=== PATIENT | female | born 1935 | race Caucasian/White ===

== ENCOUNTER 2016-11-24 18:27 | Emergency (ER) | payer MEDICARE ==
[~2016-11-24] VITALS: Ht 165.1 cm; Wt 63.5 kg
[2016-11-24] MEDS ORDERED: METF500T (18:45)
[2016-11-24] MEDS ORDERED: ASPI325T PO (18:45)
[2016-11-24] MEDS ORDERED: HYDR12.55 (18:45)
[2016-11-24] MEDS ORDERED: RAMI10CA (18:45)
[2016-11-24] MEDS ORDERED: CILO100T PO (18:45)
[2016-11-24 19:09] LABS: BASO # 0.1 K/mm3 (0.0-0.2); BASO % 1.1 % (0.0-1.0); EOS # 0.2 K/mm3 (0.0-0.50); EOS % 2.9 % (0.0-3.0); LARGE UNSTAINED CELL # 0.2 K/mm3 (0.0-0.4); LARGE UNSTAINED CELL % 2.6 % (0.0-4.0); LYMPH # 1.8 K/mm3 (1.5-4.5); LYMPH % 29.5 % (24.0-44.0); MEAN CORPUSCULAR HEMOGLOBIN 29.8 pg (27.0-33.0); MEAN CORPUSCULAR HGB CONC 33.4 g/dl (32.0-36.5); MEAN CORPUSCULAR VOLUME 89.4 fl (80.0-96.0); MONO # 0.4 K/mm3 (0.0-0.8); MONO % 6.4 % (0.0-5.0); NEUTROPHILS # 3.3 K/mm3 (1.8-7.7); NEUTROPHILS % 57.5 % (36.0-66.0); PLATELET COUNT, AUTOMATED 231 k/mm3 (150-450); RED CELL DISTRIBUTION WIDTH 13.7 % (11.5-14.5); WHITE BLOOD COUNT 5.8 K/mm3 (4.0-10.0)
[2016-11-24 19:26] LABS: ANION GAP 5 MEQ/L (8-16); BLOOD UREA NITROGEN 18 MG/DL (7-18); CALCIUM LEVEL 8.9 MG/DL (8.8-10.2); CARBON DIOXIDE LEVEL 31 MEQ/L (21-32); CHLORIDE LEVEL 105 MEQ/L (98-107); CREATININE FOR GFR 0.91 MG/DL (0.55-1.02); GLOMERULAR FILTRATION RATE > 60.0 (>32); GLUCOSE, FASTING 116 MG/DL (83-110); POTASSIUM SERUM 4.1 MEQ/L (3.5-5.1); SODIUM LEVEL 141 MEQ/L (136-145)
--- NOTE | 2016-11-24 19:26 | REP ---
Clinical: Chest pain. Comparison: None. Findings: Cardiac silhouette is within normal limits for portable technique. Atherosclerotic changes of the aorta noted. Lung zee demonstrate chronic-appearing changes. No obvious acute consolidation, effusion, or pneumothorax. Skeletal structures intact. Impression: Chronic-appearing changes. No obvious acute cardiopulmonary process. Signed by Roberto Ashford MD 11/24/2016 07:17 P
[2016-11-24] MEDS ORDERED: ASPIRIN 81 MG CHEW TABLET PO ONE (19:30)
[2016-11-24] MEDS ORDERED: ISOVUE-370 76% 100ML VIAL (Q9967) As Ordered ONE (21:05)
--- NOTE | 2016-11-24 22:07 | REP ---
Clinical: Lower extremity swelling with shortness of breath Technique: Hernandez scale and color Doppler evaluation using linear high frequency transducer. Findings: Ultrasound examination of the right and left lower extremity deep venous structures from the common femoral vein to the popliteal vein demonstrates normal compressibility flow and wave patterns in response to respiration and augmentation. There is no evidence for deep venous thrombosis. Impression: No evidence for deep venous thrombosis. Signed by Roberto Ashford MD 11/24/2016 09:59 P
--- NOTE | 2016-11-24 22:11 | ECGEPIP ---
Stationary ECG Study 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
--- NOTE | 2016-11-24 22:27 | REP ---
Clinical: Acute chest pain. Shortness of breath. Technique: Axial contrast enhanced images from the thoracic inlet to the upper abdomen using 100 ml Isovue 370 intravenous contrast material with coronal and sagittal re-formations. Findings: Satisfactory enhancement of the pulmonary vasculature is achieved and no filling defects are identified to suggest pulmonary embolus. Cardiomegaly is appreciated along with atherosclerotic changes to the coronary arteries and thoracic aorta. No aortic dissection. Bilateral lung zee demonstrate chronic-appearing changes with trace basilar atelectasis. No pleural or pericardial effusion. No pneumothorax. No adenopathy. Impression: No evidence for pulmonary embolus. Cardiomegaly and atherosclerotic disease. Chronic interstitial changes with trace basilar atelectasis. Signed by Roberto Ashford MD 11/24/2016 10:19 P
[2016-11-25 02:21] VITALS: BP 158/72
--- NOTE | 2016-11-25 06:16 | ECGEPIP ---
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
[2016-11-26] MEDS ORDERED: ASPI325T28 PO (14:58)
[2016-11-26] MEDS ORDERED: RAMI10CA PO (14:58)
[2016-11-26] MEDS ORDERED: METF500T PO (14:58)
[2016-11-26] MEDS ORDERED: HYDR12CA PO (14:58)
== END 2016-11-25 02:22 | disposition home or self-care (01) ==
LOC: M ED 20:18
DX: R07.9 Chest pain, unspecified (principal); I25.10 Atherosclerotic heart disease of native coronary artery without angina pectoris; I50.20 Unspecified systolic (congestive) heart failure; I25.2 Old myocardial infarction; I10 Essential (primary) hypertension; E78.5 Hyperlipidemia, unspecified; Z95.5 Presence of coronary angioplasty implant and graft; Z88.0 Allergy status to penicillin; Z79.84 Long term (current) use of oral hypoglycemic drugs; Z79.899 Other long term (current) drug therapy; Z79.82 Long term (current) use of aspirin

== ENCOUNTER 2016-11-26 13:10 | Inpatient (IN) | payer MEDICARE ==
[~2016-11-26] VITALS: Ht 162.6 cm; Wt 61.8 kg
[~2016-11-26 13:10] MED LIST: ASPI325T PO; CILO100T PO; HYDR12.55; METF500T; RAMI10CA
[2016-11-26] MEDS ORDERED: NS 500 ML IV ONE (13:30)
--- NOTE | 2016-11-26 13:57 | REP ---
Clinical: Cerebrovascular accident. Findings: Age-related atrophy and microvascular ischemic changes are appreciated. The ventricles and sulci are symmetric. Hernandez-white differentiation is maintained. There is no evidence for acute intracranial hemorrhage, mass/mass effect, pathology or infarction. No extra-axial fluid collection. Calvarium is intact. Paranasal sinuses and mastoid air cells are clear. Impression: Age related atrophy and microvascular ischemic changes. No acute intracranial hemorrhage, infarction, or mass/mass effect. Signed by Roberto Ashford MD 11/26/2016 01:48 P
[2016-11-26 14:05] LABS: BASO # 0.1 K/mm3 (0.0-0.2); BASO % 0.9 % (0.0-1.0); EOS # 0.2 K/mm3 (0.0-0.50); EOS % 2.5 % (0.0-3.0); LARGE UNSTAINED CELL # 0.2 K/mm3 (0.0-0.4); LARGE UNSTAINED CELL % 2.1 % (0.0-4.0); LYMPH # 1.5 K/mm3 (1.5-4.5); LYMPH % 20.7 % (24.0-44.0); MEAN CORPUSCULAR HEMOGLOBIN 29.6 pg (27.0-33.0); MEAN CORPUSCULAR HGB CONC 32.9 g/dl (32.0-36.5); MEAN CORPUSCULAR VOLUME 90.1 fl (80.0-96.0); MONO # 0.4 K/mm3 (0.0-0.8); MONO % 5.4 % (0.0-5.0); NEUTROPHILS # 4.9 K/mm3 (1.8-7.7); NEUTROPHILS % 68.4 % (36.0-66.0); PLATELET COUNT, AUTOMATED 254 k/mm3 (150-450); RED CELL DISTRIBUTION WIDTH 13.5 % (11.5-14.5); WHITE BLOOD COUNT 7.2 K/mm3 (4.0-10.0)
--- NOTE | 2016-11-26 14:11 | REP ---
Clinical: Cerebrovascular accident . Comparison: 11/24/2016 . Findings: The mediastinum and cardiac silhouette are stable and within normal limits for portable technique. The lung zee are clear without acute consolidation, effusion, or pneumothorax. Skeletal structures are intact. Impression: Normal portable chest x-ray Signed by Roberto Ashford MD 11/26/2016 02:03 P
[2016-11-26 14:18] LABS: INR 1.05
[2016-11-26 14:31] LABS: ANION GAP 8 MEQ/L (8-16); BLOOD UREA NITROGEN 19 MG/DL (7-18); CALCIUM LEVEL 8.5 MG/DL (8.8-10.2); CARBON DIOXIDE LEVEL 26 MEQ/L (21-32); CHLORIDE LEVEL 106 MEQ/L (98-107); CREATININE FOR GFR 0.91 MG/DL (0.55-1.02); GLOMERULAR FILTRATION RATE > 60.0 (>32); GLUCOSE, FASTING 150 MG/DL (83-110); POTASSIUM SERUM 4.5 MEQ/L (3.5-5.1); SODIUM LEVEL 140 MEQ/L (136-145)
[2016-11-26] MEDS ORDERED: METF500T PO (14:58)
[2016-11-26] MEDS ORDERED: ASPI325T28 PO (14:58)
[2016-11-26] MEDS ORDERED: RAMI10CA PO (14:58)
[2016-11-26] MEDS ORDERED: HYDR12CA PO (14:58)
[2016-11-26] MEDS ORDERED: GLUCAGON FOR INJ 1 MG VIAL (J1610) SC PRN (16:00)
[2016-11-26] MEDS ORDERED: BISACODYL 5 MG TAB PO PRN (16:00)
[2016-11-26] MEDS ORDERED: ACETAMINOPHEN TAB 650MG DOSE (2X325MG) PO PRN (16:00)
[2016-11-26] MEDS ORDERED: GLUCOSE 4 GM CHEW TABLET PO PRN (16:00)
[2016-11-26] MEDS ORDERED: DEXTROSE 50% 50 ML SYRINGE IV PRN (16:00)
[2016-11-26] MEDS ORDERED: LevoFLOXacin IV 500 MG in APPROPRIATE DILUENT 1 EA IV ONE (16:15)
--- NOTE | 2016-11-26 17:19 | HPE ---
DATE OF ADMISSION: 11/26/2016 PRIMARY CARE PROVIDER: Dr. Toño Ceja. CHIEF COMPLAINT: Slurred speech, facial droop. HISTORY OF PRESENT ILLNESS: Ms. Poole is an 81-year-old female with past medical history significant for hypertension, hyperlipidemia, diabetes and history of myocardial infarction (VT) who presents to the emergency department with slurred speech and facial droop. Granddaughter noticed that last evening when she was talking to her grandmother, her speech was slurred. Another granddaughter apparently noticed that she had facial drooping. Nothing was done about this at that time. Granddaughter called again today, noticed that she still continued to have slurred speech and called emergency medical services (EMS). The patient had apparently also mentioned some weakness on the left side. One of the granddaughters mentioned that she did have an episode of shaking and her eyes rolled back. No incontinence and no tongue biting at that time. They state that since , her balance has been off and she has fallen a couple of times. The patient denies any headache, lightheadedness or dizziness. No blurry or double vision or loss of vision. No chest pain, palpitations or shortness of breath. She did have a little bit of nausea but no emesis, abdominal pain, diarrhea, fevers or chills. No recent travel and no sick contacts. In the emergency department when patient initially came in, she apparently was not as responsive as she is now. Vitals are stable. The patient is awake and alert. Answering questions appropriately. Following commands. Laboratory data did not show any significant abnormality. Urinalysis, however, did show some cloudy urine, 2+ blood, 3+ leukocyte esterase, WBC of 124, and 2+ bacteria. The patient had a head CT performed which did not show any acute abnormality. Chest x-ray was normal. She had an EKG which showed sinus rhythm, left axis deviation , intraventricular conduction delay, left ventricular hypertrophy (LVH), nonspecific T-wave abnormalities. Given her presentation, hospitalist service was called to admit. PAST MEDICAL HISTORY 1. Hypertension. 2. Diabetes. 3. Coronary artery disease with history of VT. 4. Hyperlipidemia. PAST SURGICAL HISTORY 1. Stent maybe 7-8 years ago. 2. Appendectomy. 3. Tonsillectomy. 4. Left knee surgery. HOME MEDICATIONS: - aspirin 325 mg by mouth daily - hydrochlorothiazide 12.5 mg by mouth daily - metformin 500 mg by mouth twice daily - ramipril 10 mg by mouth daily ALLERGIES: PENICILLIN (rash). SOCIAL HISTORY: The patient denies any tobacco use or illicit drugs. Occasional wine. She lives with her . No pets in the home. They travel yearly to [place] in the winter months. No sick contacts. No recent travel. No exposure to ticks. FAMILY HISTORY: Mom had history of lung cancer. Father had heart problems. She has a son with seizure disorder. REVIEW OF SYSTEMS: Constitutional: No fevers, chills, night sweats. No significant weight changes. She does have some weakness. HEENT: No headache, lightheadedness or dizziness. No blurry or double vision or loss of vision. No acute changes to vision. She is hard of hearing. Cardiovascular: No chest pain/pressure, palpitations or shortness of breath. No chronic lower extremity edema. Pulmonary: No shortness of breath or cough. No wheezing. Gastrointestinal: Positive for mild nausea. No emesis, abdominal pain, diarrhea, constipation, hematochezia or melena. Genitourinary: No increased urinary frequency, urgency, dysuria or hematuria. Endocrine: History of diabetes. No thyroid disorder. Integument: No unusual rashes or skin lesions. Musculoskeletal: No unusual muscle or joint pains. Neurologic: No paresthesias. No previous history of CVA. PHYSICAL EXAMINATION: VITAL SIGNS: Temperature 97.9, pulse 72, respiratory rate 18, blood pressure 123/58, pulse oximetry 98% on room air. GENERAL: The patient is awake and alert in no acute distress. HEENT: Atraumatic. Extraocular muscles are intact. Pupils are equally round and reactive to light. No scleral icterus. No nystagmus. Moist mucosa. Tongue is deviated to the left. NECK: Supple. No cervical lymphadenopathy or thyromegaly. HEART: Normal S1, S2, regular rate and rhythm. Did not appreciate a murmur. LUNGS: Clear to auscultation bilaterally. No rales, rhonchi or wheezing. ABDOMEN: Soft, nontender, nondistended. Positive bowel sounds. No rebound, guarding or rigidity. EXTREMITIES: No cyanosis or edema. Positive pedal pulses bilaterally. SKIN: Warm and dry. No rashes noted. NEUROLOGIC: Motor strength in upper and lower extremities is 5/5 bilaterally and symmetric. Sensation is intact. Duipxq-oc-gthx test was abnormal on the left. The patient was not able to perform lszu-gk-yrak testing. Negative Babinski. Positive for left facial droop. Speech has improved but still a little slurred. LABORATORY DATA: WBC 7.2, hemoglobin 13.8, hematocrit 42.0, platelet count 254. Sodium 140, potassium 4.5, chloride 106, carbon dioxide 26, anion gap 8, BUN 19, creatinine 0.91, GFR greater than 60, fasting glucose 150, hemoglobin A1c 6.4, calcium 8.5, total creatine kinase 59, CK-MB 1.0, troponin less than 0.02. PT 13.8, INR 1.05, APTT 27.86. Urinalysis showed cloudy appearance, 1+ protein, trace ketones, 2+ blood, 3+ leukocyte esterase, 124 WBC, 67 RBC, 2+ bacteria. IMAGING: Head CT reveals age-related atrophy and microvascular ischemic changes. No acute hemorrhage, infarct or mass effect. Chest x-ray revealed no acute cardiopulmonary process. ASSESSMENT AND PLAN: 1. Slurred speech and facial droop likely secondary to cerebrovascular accident (CVA). Head CT was negative. Will obtain MRI, MRA and carotid imaging. Will also obtain an echocardiogram. The patient will be placed on aspiration precautions, fall risk precautions, neurologic checks every four hours. Given the noted history of shaking and eyes rolling back, will obtain an electroencephalogram (EEG). Seizure precautions in place. The patient denies any dysphasia, but will place her on a puree thickened diet until speech evaluation could be done. Physical therapy (PT) and occupational therapy (OT). Neurology was called. Recommendations from Dr. Newell are to switch her from aspirin to Plavix. Given her negative head CT, will give her a dose of Plavix right now. Will also initiate statin therapy. If the patient's MRI is negative , she can be switched back to her aspirin. Neurology will see the patient in consult. 2. Abnormal urinalysis suggestive of urinary tract infection. Will obtain urine culture. Will place the patient on Levaquin. She does have previous history of Escherichia (E.) coli in the urine.. Vitals are stable. She is afebrile. No white count. 3. Hypertension. The patient's blood pressure is currently well controlled. We will hold her hydrochlorothiazide and ramipril. She did not come in hypertensive, but permissive hypertension would be appropriate in this case. Continue to monitor her blood pressures. 4. Diabetes. Will hold metformin. Insulin sliding scale with hypoglycemic protocol. 5. History of myocardial infarction status post stent. Aspirin is being changed to Plavix. Initiated on statin therapy. We will cycle cardiac markers. The patient is asymptomatic at this time. 6. Deep venous thrombosis (DVT) prophylaxis with subcutaneous heparin twice a day. 7. Code status. The patient her are unclear of their code status. They report that there are some forms filled out at home and they will have to bring those in. The patient will be admitted to progressive care unit (PCU). Expected to stay at least two midnights. Dr. Estrella to take over her care in the morning. My preceptor for this patient encounter was Dr. Catherine Bloom. The preceptor was physically present in the building during the encounter and was fully available as needed. All aspects of the patient interview, examination, medical decision making process, and medical care plan development were reviewed and approved by the preceptor. The preceptor is aware and concurs with the plan as stated in the body of this note and will attest to such by his/her co-signature. I have both independently examined this patient as well as reviewed the note. I have discussed in detail with the resident the findings and plan of treatment as documented in the residents note. I will continue to follow the patient and offer further guidance to the patients care as necessary during this hospital stay. Catherine QUINTANILLA
[2016-11-26] MEDS: HumaLOG INSULIN (NovoLOG) PER UNIT SC SCH ×2 (17:30→22:17)
--- NOTE | 2016-11-26 18:40 | REPUSA ---
Clinical history: CVA. Comparison: none. Technique: [id number] MRA images of the brain were obtained without administration of contrast. 3 -D MIP images were also obtained. Findings: The vascular structures extending from the distal carotid and vertebrobasilar arterial syst ems, through the modoc of Yu, demonstrate normal caliber and contour. The basilar artery is ecta tic. There is no evidence of aneurysm, stenosis, or thrombosis. Impression: Unremarkable MRA examination of the brain.
[2016-11-26 18:45] VITALS: BP 134/72
--- NOTE | 2016-11-26 18:50 | REPUSA ---
Clinical history: CVA. Comparison: none. Technique: Multiecho multiplanar MRI images of the brain were obtained without administration of cont rast. Diffusion weighted images with ADC mapping was also obtained. The ventricles and sulci are symmetric but prominent bilaterally. The brain parenchyma demonstrates d iffuse T2 hyperintensity throughout the subcortical white matter. There is a focal area restricted di ffusion in the right basal ganglia. There is no midline shift, mass effect, or extra-axial fluid momo ection. The midline intracranial structures do not demonstrate any gross abnormalities. The cervical cranial junction is intact. The orbits are unremarkable. The visualized paranasal sinuses and mastoid air cells are clear. The osseous structures and superficial soft tissues are unremarkable. The vascu lar structures demonstrate appropriate flow voids. Impression: 1. Acute infarct in the right basal ganglia. No surrounding mass effect or edema. 2. Findings consistent with severe chronic small vessel ischemic disease and age-related atrophy. The floor nurse was notified of these findings at 6:39 PM on 11/26/2016.
[2016-11-26 19:34] VITALS: BP 119/56
[2016-11-26 19:37] VITALS: BP 115/60
[2016-11-26 19:44] VITALS: BP 124/58
[2016-11-26] MEDS: CLOPIDOGREL 75 MG TAB PO SCH (19:56)
[2016-11-26 20:39] LABS: CHOLESTEROL LEVEL 416 MG/DL (<200); TRIGLYCERIDES LEVEL 427 MG/DL (<150)
[2016-11-26] MEDS: HEPARIN SOD (PORCINE) 5000 UNITS/ML VIAL SC SCH (22:15)
[2016-11-26] MEDS: ATORVASTATIN 20 MG TAB PO SCH (22:16)
[2016-11-27 00:58] VITALS: BP 141/65
[2016-11-27 03:59] VITALS: BP 135/62
[2016-11-27 04:03] LABS: MEAN CORPUSCULAR HEMOGLOBIN 29.5 pg (27.0-33.0); MEAN CORPUSCULAR VOLUME 89.5 fl (80.0-96.0); RED CELL DISTRIBUTION WIDTH 13.6 % (11.5-14.5); WHITE BLOOD COUNT 5.8 K/mm3 (4.0-10.0)
[2016-11-27 04:39] LABS: ANION GAP 7 MEQ/L (8-16); BLOOD UREA NITROGEN 18 MG/DL (7-18); CALCIUM LEVEL 8.7 MG/DL (8.8-10.2); CARBON DIOXIDE LEVEL 29 MEQ/L (21-32); CHLORIDE LEVEL 105 MEQ/L (98-107); CREATININE FOR GFR 0.94 MG/DL (0.55-1.02); GLOMERULAR FILTRATION RATE > 60.0 (>32); GLUCOSE, FASTING 105 MG/DL (83-110); SODIUM LEVEL 141 MEQ/L (136-145)
[2016-11-27] MEDS: HEPARIN SOD (PORCINE) 5000 UNITS/ML VIAL SC SCH ×2 (07:22→17:07)
[2016-11-27 08:00] VITALS: BP 131/70
[2016-11-27] MEDS: CLOPIDOGREL 75 MG TAB PO SCH (09:03)
[2016-11-27] MEDS: LACTOBACILLUS ACIDOPHILUS CAP (BACID) PO SCH ×2 (09:03→21:45)
[2016-11-27] MEDS: HumaLOG INSULIN (NovoLOG) PER UNIT SC SCH ×4 (09:05→20:53)
--- NOTE | 2016-11-27 09:19 | ECGEPIP ---
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
[2016-11-27 12:00] VITALS: BP 101/69
--- NOTE | 2016-11-27 13:28 | IPNPDOC ---
Text Note Date of Service The patient was seen on 11/27/16. NOTE Subjective: Patient is an 81 year old female with a PMHx of HTN, DM2, CAD (Hx of NM), DLP who presented to the ER with complaints of slurred speech and left sided facial droop. When patient's grand-daughter was speaking with her, she had noticed that she had a shaking episode and feel back unresponsive. Patient has also noted multiple falls in the last 1 week, with instability with walking. Patient was admitted to telemetry for TIA / CVA. Patient was seen and examined at the bedside. She notes improvement in her speech and swallowing ability. She denies any seizure like activity since admission. Objective: Vitals (See below) General: Lying in bed, no acute distress, comfortable, AAOx3 HEENT: NC, AT CVS: RRR, +S1S2 Lungs: Fair air entry b/l, -w/r/r Abdomen: Soft, ND, NT, +BSx4 Extremities: +PPx4, - Edema, - Calf tenderness Neuro: 11/04 muscle stregth in upper and lower extremities bilaterally, No appreciable slurred speech, Mild left facial droop noted, Assessment and plan: 1. Left sided facial droop and slurred speech - likely 2/2 acute CVA - Presented with difficulty with ambulation, slurred speech and facial droop on left - Physical with left sided facial droop - Lipid panel noted - CT head 11/26: no acute intracranial hemorrhage / infarct / mass + mass effect - MRA Head 11/26: unremarkable - MRI Brain 11/26: acute infarct in R basal ganglia, no mass effect / edema - ECHO pending, MRA Neck pending - EEG pending - ASA changed to Plavix, c/w Atorvastatin - c/w Telemetry for 72 hours total - Neurology on consult - appreciate their input 2. Abnormal urinalysis - possibly 2/2 Urinary tract infection - No leukocytosis, remains afebrile - Urine culture pending - c/w Levofloxacin (s/p 500 mg, c/w 250mg PO Q24H) 3. HTN - Allow permissive hypertension between SBP 140-180s - Will hold HCTZ and Ramipril 4. NIDDM2 - c/w ISS for now 5.Hx of NM / CAD - ASA changed to Plavix - c/w Atorvastatin 6. DVT prophylaxis - c/w Heparin VS,Fishbone, I+O VS, Fishbone, I+O Laboratory Tests 11/26/16 13:43 Red Blood Count 4.66, Mean Corpuscular Volume 90.1, Mean Corpuscular Hemoglobin 29.6, Mean Corpuscular Hemoglobin Concent 32.9, Red Cell Distribution Width 13.5 , Neutrophils (%) (Auto) 68.4 H, Lymphocytes (%) (Auto) 20.7 L, Monocytes (%) ( Auto) 5.4 H, Eosinophils (%) (Auto) 2.5, Basophils (%) (Auto) 0.9, Neutrophils # (Auto) 4.9, Lymphocytes # (Auto) 1.5, Monocytes # (Auto) 0.4, Eosinophils # ( Auto) 0.2, Basophils # (Auto) 0.1, Calcium Level 8.5 L, Total Creatine Kinase 59 11/27/16 03:47 Red Blood Count 4.21, Mean Corpuscular Volume 89.5, Mean Corpuscular Hemoglobin 29.5, Mean Corpuscular Hemoglobin Concent 33.0, Red Cell Distribution Width 13.6 , Calcium Level 8.7 L, Total Creatine Kinase 50 Vital Signs Date Time Temp Pulse Resp B/P (MAP) Pulse Ox O2 Delivery O2 Flow Rate FiO2 11/27/16 12:00 98.2 76 18 101/69 (80) 97 Room Air 11/26/16 17:57 2.0 I&O- Last 24 Hours up to 6 AM 11/27/16 06:00 Intake Total 840 ml Output Total 400 ml Balance 440 ml NIGEL GAR MD November 27, 2016 13:28
[2016-11-27 16:00] VITALS: BP 159/74
[2016-11-27] MEDS: LevoFLOXacin IV 250 MG in APPROPRIATE DILUENT 1 EA IV SCH (17:07)
[2016-11-27 19:35] VITALS: BP 130/67
[2016-11-27] MEDS: ATORVASTATIN 20 MG TAB PO SCH (21:45)
[2016-11-28] VITALS (8 sets, daily range): BP systolic 118–172; BP diastolic 52–100
[2016-11-28 05:19] LABS: MEAN CORPUSCULAR HEMOGLOBIN 29.6 pg (27.0-33.0); MEAN CORPUSCULAR VOLUME 89.7 fl (80.0-96.0); RED CELL DISTRIBUTION WIDTH 13.4 % (11.5-14.5); WHITE BLOOD COUNT 4.9 K/mm3 (4.0-10.0)
[2016-11-28 05:38] LABS: ANION GAP 9 MEQ/L (8-16); BLOOD UREA NITROGEN 15 MG/DL (7-18); CALCIUM LEVEL 8.3 MG/DL (8.8-10.2); CARBON DIOXIDE LEVEL 25 MEQ/L (21-32); CHLORIDE LEVEL 109 MEQ/L (98-107); CHOLESTEROL LEVEL 351 MG/DL (<200); CREATININE FOR GFR 0.93 MG/DL (0.55-1.02); GLOMERULAR FILTRATION RATE > 60.0 (>32); GLUCOSE, FASTING 119 MG/DL (83-110); POTASSIUM SERUM 3.9 MEQ/L (3.5-5.1); SODIUM LEVEL 143 MEQ/L (136-145); TRIGLYCERIDES LEVEL 521 MG/DL (<150)
[2016-11-28] MEDS: HEPARIN SOD (PORCINE) 5000 UNITS/ML VIAL SC SCH ×2 (05:40→18:34)
[2016-11-28] MEDS: CLOPIDOGREL 75 MG TAB PO SCH (08:52)
[2016-11-28] MEDS: HumaLOG INSULIN (NovoLOG) PER UNIT SC SCH ×4 (08:52→21:00)
[2016-11-28] MEDS: LACTOBACILLUS ACIDOPHILUS CAP (BACID) PO SCH ×2 (08:52→22:35)
[2016-11-28] MEDS ORDERED: SLF 3 ML SYR IV PRN (09:15)
--- NOTE | 2016-11-28 10:23 | ECHO ---
DATE OF PROCEDURE: 11/27/2016 DATE OF : 1935 AGE: 81 REFERRING PROVIDER: Dr. Bloom. PATIENT LOCATION: Room 3224. REASON FOR ECHOCARDIOGRAM: Cerebrovascular accident (CVA). 2D MEASUREMENTS: IVS: 1.1 cm LV: 3.9 cm LVPW: 1.2 cm LA: 3.1 cm Aorta: 3.2 cm RV: 2.7 cm IVC: 1.7 cm DOPPLER MEASUREMENT: Mitral E: 0.5 Mitral A: 0.8 Ratio 0.6 Maximum tricuspid valve velocity: 2.3 m/s 2D COMMENTS: 1. Normal left ventricular size, wall thickness but left ventricular systolic function appeared to be mildly depressed. The alex-septum appeared to be mildly hypokinetic in limited views. The estimated global left ventricular systolic ejection fraction is 45%. 2. Normal left atrium. Normal right atrium and right ventricle. 3. The atrial septum appeared to be normal without evidence of defect or shunt. 4. Normal aortic root. 5. No pericardial effusion seen. 6. Moderately calcified aortic valve with normal leaflet excursion. Mildly calcified mitral annulus with normal anterior mitral valve leaflet motion. Normal tricuspid valve. The pulmonic valve and proximal pulmonary artery branches were not well visualized. 7. The inferior vena cava/IVC was normal in size, central venous pressure is probably normal. 8. Mild atheromatous plaques noted in the aorta. DOPPLER: Only mild tricuspid regurgitation detected. The calculated pulmonary artery systolic pressure varies between 30 to 40 mmHg. Abnormal relaxation pattern was noted across the mitral valve leaflets as well as the mitral valve annulus consistent with grade I left ventricular diastolic dysfunction. IMPRESSION: 1. Not mentioned above, the study was technically limited due to poor acoustic window. 2. Probably mildly depressed global left ventricular systolic function with regional wall motion abnormalities. There was grade I left ventricular diastolic dysfunction. 3. Aortic valve sclerosis without stenosis or aortic regurgitation. 4. Isolated mitral annulus calcification, mild. No significant mitral regurgitation. 5. Mild tricuspid regurgitation with mild pulmonary hypertension. MTDD
--- NOTE | 2016-11-28 11:26 | IPNPDOC ---
Text Note Date of Service The patient was seen on 11/28/16. NOTE Subjective: Patient is an 81 year old female with a PMHx of HTN, DM2, CAD (Hx of [place]), DLP who presented to the ER with complaints of slurred speech and left sided facial droop. When patient's grand-daughter was speaking with her, she had noticed that she had a shaking episode and feel back unresponsive. Patient has also noted multiple falls in the last 1 week, with instability with walking. Patient was admitted to telemetry for TIA / CVA. Patient was seen and examined at the bedside. Patient has been tolerating an adjusted diet. Denies any muscle weakness. Will continue to work with physical therapy. Objective: Vitals (See below) General: Lying in bed, no acute distress, comfortable, AAOx3 HEENT: NC, AT CVS: RRR, +S1S2 Lungs: Fair air entry b/l, -w/r/r Abdomen: Soft, ND, NT, +BSx4 Extremities: +PPx4, - Edema, - Calf tenderness Neuro: 11/04 muscle strength in upper and lower extremities bilaterally, No appreciable slurred speech, Mild left facial droop noted, Assessment and plan: 1. Left sided facial droop and slurred speech - likely 2/2 acute CVA - Presented with difficulty with ambulation, slurred speech and facial droop on left - Physical with left sided facial droop - Lipid panel noted - CT head 11/26: no acute intracranial hemorrhage / infarct / mass + mass effect - MRA Head 11/26: unremarkable - MRI Brain 11/26: acute infarct in R basal ganglia, no mass effect / edema - ECHO pending, MRA Neck pending (Will be done on 11/29/16) - EEG pending - ASA changed to Plavix, c/w Atorvastatin - c/w Telemetry for 72 hours total - Neurology on consult - appreciate their input - Physical therapy has evaluated; will continue sessions - not cleared at this time 2. Abnormal urinalysis - possibly 2/2 Urinary tract infection - No leukocytosis, remains afebrile - Urine culture still remain pending - c/w Levofloxacin (s/p 500 mg, c/w 250mg PO Q24H) 3. HTN - Allow permissive hypertension between SBP 140-180s - Will continue to hold HCTZ and Ramipril 4. NIDDM2 - c/w ISS for now 5.Hx of [place] / CAD - ASA changed to Plavix - c/w Atorvastatin 6. DVT prophylaxis - c/w Heparin Disposition: - Continue PT - Complete 72 hours of telemetry monitoring - Complete Imaging of carotids - Await results of ECHO VS,Fishbone, I+O VS, Fishbone, I+O Laboratory Tests 11/28/16 04:50 Red Blood Count 4.34, Mean Corpuscular Volume 89.7, Mean Corpuscular Hemoglobin 29.6, Mean Corpuscular Hemoglobin Concent 33.0, Red Cell Distribution Width 13.4 Vital Signs Date Time Temp Pulse Resp B/P (MAP) Pulse Ox O2 Delivery O2 Flow Rate FiO2 11/28/16 08:00 98.0 70 18 137/52 (80) 96 Room Air 11/26/16 17:57 2.0 I&O- Last 24 Hours up to 6 AM 11/28/16 05:59 Intake Total 1350 ml Output Total 950 ml Balance 400 ml NIGEL GAR MD November 28, 2016 11:26
[2016-11-28] MEDS: NYSTATIN 500,000 U/5 ML SUSP UDC PO SCH ×3 (13:41→22:55)
[2016-11-28] MEDS: SLF 3 ML SYR IV SCH ×2 (13:42→22:36)
[2016-11-28] MEDS: LevoFLOXacin IV 250 MG in APPROPRIATE DILUENT 1 EA IV SCH (16:23)
--- NOTE | 2016-11-28 21:03 | CR ---
DATE OF CONSULTATION: 11/28/2016 REFERRING PROVIDER: Dr. Catherine Bloom REASON FOR CONSULTATION: Acute stroke. HISTORY OF PRESENT ILLNESS: Lona Poole is an 81-year-old female who presented to [facility] 2 days after developing symptoms of slurred speech and two falls within the past week. The patient had a left facial droop on evaluation. MRI did show a right basal ganglia and vaughn radiata acute infarction. The patient was taking aspirin 325 mg daily at home. This was switched to Plavix 75 mg. She is on Lipitor 40 mg daily. Her hemoglobin A1c was found to be 6.4, TSH 2.51 and cholesterol was 416. The patient's HDL was 45. The patient, at the present time, denies having weakness of the left arm and leg though does have obvious left facial droop in an upper motor neuron distribution. The patient has been able to eat well without any difficulty. She is not having any dysphagia. She has mild dysarthria. She denies any vertigo, dizziness, blurred vision, chest pain or shortness of breath. REVIEW OF SYSTEMS: 14-point review of systems was obtained and is negative except as per history of present illness. PAST MEDICAL HISTORY: Hypertension, diabetes, coronary artery disease with history of myocardial infarction and stent placement, hyperlipidemia. PAST SURGICAL HISTORY: Stent 7 to 8 years ago, appendectomy, tonsillectomy, left knee surgery. HOME MEDICATIONS: - aspirin 225 mg daily - hydrochlorothiazide 12.5 mg by mouth daily - metformin 500 mg by mouth twice a day - ramipril 10 mg by mouth daily ALLERGIES: PENICILLIN. SOCIAL HISTORY: The patient denies use of any tobacco or illicit drugs and occasionally drinks wine. FAMILY HISTORY: Son with seizures. PHYSICAL EXAMINATION: Blood pressure is 131/70, pulse rate 72, respiratory rate is 18, temperature is 98.1 degrees Fahrenheit, 95% oxygenation on room air. Pupils are 3 mm round, reactive to light. Extraocular movements are intact in all directions. Sensation V1, V2-V3 is intact. There is a left upper motor neuron weakness of the lower face. Hearing subjectively equal to finger rub. No weakness of sternocleidomastoids bilaterally. Tongue is midline. There is no pronator drift. Strength is 5/5, including bilateral hand business services vice president, biceps, triceps, deltoid. Bilateral iliopsoas are grade 4/5. Quadriceps are 5/5. Tibialis anterior 5/5. Deep tendon reflexes are decreased throughout. Romberg testing is deferred. Sensory is intact to light touch in all four extremities. Coordination: Normal [id number] without any signs of ataxia, dysmetria. ASSESSMENT: 1. Acute ischemic stroke of the right basal ganglia resulting and lower left upper motor neuron weakness of the face with dysarthria. PLAN 1. Continue Plavix 75 mg daily. Continue Lipitor 40 mg daily. Repeat fasting lipid profile the following morning, as lipid profile checked was abnormal with triglycerides 427, cholesterol 416 when the patient was not fasting. 2. Continue telemetry monitoring. 3. Continue physical therapy (PT) and occupational therapy (OT). 4. The patient can followup in the [facility] Neurology office upon discharge.
[2016-11-28] MEDS: ATORVASTATIN 20 MG TAB PO SCH (22:35)
[2016-11-29 04:58] VITALS: BP 132/82
[2016-11-29 05:14] LABS: MEAN CORPUSCULAR HEMOGLOBIN 29.6 pg (27.0-33.0); MEAN CORPUSCULAR HGB CONC 33.1 g/dl (32.0-36.5); MEAN CORPUSCULAR VOLUME 89.4 fl (80.0-96.0); RED CELL DISTRIBUTION WIDTH 13.7 % (11.5-14.5); WHITE BLOOD COUNT 5.1 K/mm3 (4.0-10.0)
[2016-11-29 05:29] LABS: ANION GAP 8 MEQ/L (8-16); BLOOD UREA NITROGEN 18 MG/DL (7-18); CALCIUM LEVEL 8.7 MG/DL (8.8-10.2); CARBON DIOXIDE LEVEL 26 MEQ/L (21-32); CHLORIDE LEVEL 109 MEQ/L (98-107); CREATININE FOR GFR 0.93 MG/DL (0.55-1.02); GLOMERULAR FILTRATION RATE > 60.0 (>32); GLUCOSE, FASTING 119 MG/DL (83-110); POTASSIUM SERUM 4.1 MEQ/L (3.5-5.1); SODIUM LEVEL 143 MEQ/L (136-145)
[2016-11-29] MEDS: SLF 3 ML SYR IV SCH ×3 (06:00→21:20)
[2016-11-29] MEDS: HEPARIN SOD (PORCINE) 5000 UNITS/ML VIAL SC SCH ×2 (07:31→17:17)
[2016-11-29] MEDS: NYSTATIN 500,000 U/5 ML SUSP UDC PO SCH ×3 (07:31→17:17)
[2016-11-29 08:00] VITALS: BP_SYST 142; BP_SYST 143; BP_SYST 156; BP_DIAS 82; BP_DIAS 84; BP_DIAS 93
[2016-11-29] MEDS: CLOPIDOGREL 75 MG TAB PO SCH (08:25)
[2016-11-29] MEDS: LACTOBACILLUS ACIDOPHILUS CAP (BACID) PO SCH ×2 (08:25→21:20)
[2016-11-29] MEDS: HumaLOG INSULIN (NovoLOG) PER UNIT SC SCH ×4 (08:25→21:00)
[2016-11-29 12:00] VITALS: BP 146/88
[2016-11-29 16:00] VITALS: BP_SYST 129; BP_SYST 131; BP_SYST 132; BP_DIAS 78; BP_DIAS 80; BP_DIAS 84
[2016-11-29] MEDS ORDERED: LevoFLOXacin 250 MG TABLET PO SCH (16:00)
--- NOTE | 2016-11-29 18:03 | IPNPDOC ---
Text Note Date of Service The patient was seen on 11/29/16. NOTE Subjective: Patient seen and examined sitting up in chair. States she is doing better, but still feeling weak on the left side, mainly in the lower extremity. States she has improved with physical therapy. Denies headache, dizziness, blurred vision, fevers, chills, chest pain, palpitations, SOB, nausea, vomiting, abdominal pain, diarrhea. Admits to constipation and that she has not had a BM for a few days now. However, she feels that she may have to go today as she was "having some action in her stomach." Admits to some left-sided weakness. Denies slurred speech. Denies bowel/bladder incontinence. Denies urinary complaints: dysuria, hematuria. Denies hematochezia. Is eating and drinking well. Objective: Vitals: T:98.2 BP:132/82 RR:18 P:78 O2 Saturation: 96% room air I/O: 1780/1350 mL yesterday, with +430 mL balance today Voids: 1 yesterday Wt: 61.8 kg from 61 kg yesterday BMs: none reported General: Awake, alert, oriented 3. Pleasant and cooperative thin elderly female sitting upright comfortably in chair in no acute distress. HEENT: Head: normocephalic, atraumatic. L-sided facial droop with asymmetry and L lip lower than R lip. Eyes: PERRL, sclera are nonicteric. Nose: No external lesions Neck: Supple. Respiratory: Clear to auscultation bilaterally. Chest: Symmetrical chest rise bilaterally. Cardiovascular: regular rate and rhythm, with no murmurs, rubs or gallops. Abdomen: soft, nontender, nondistended, no hepatosplenomegaly appreciated. Bowel sounds present. Extremities: no swelling in either lower extremity bilaterally Neurological: No focal neurologic deficits appreciated bilaterally. CN 2-12 intact bilaterally. Sensation intact. Musculoskeletal: 4-5/5 muscle strength in L upper and L lower extremity. 5/5 muscle strength RUE and RLE. Slightly decreased ROM with flexion/extension of L upper and lower extremity compared with R. Integumentary: skin free from rashes, lesions, abrasions Vascular: +2 radial pulses appreciated bilaterally. Laboratory data: Please see below. Unremarkable. Microbiology: Urine Cx from 11/26 showed >100,000 E.coli Imagin/27: CT Head without Contrast: (-) CXR: normal Brain MRA Head: Unremarkable MRA Brain MRI: Acute infarction in the R Basal Ganglia. No surrounding mass effect or edema. Findings consistent with severe chronic small vessel ischemic disease and age-related atrophy. Echocardiogram 11/27: EF: 45% Mildly depressed global L ventricular systolic function with regional wall motion abnormalities. Grade I L ventricular diastolic dysfunction. Aortic valve sclerosis without stenosis or aortic regurgitation. Mild tricuspid regurgitation with mild pulmonary HTN. Assessment: 81 yo F is presenting for CVA/acute ischemic stroke of the R basal ganglia with L upper motor neuron weakness. Plan: -L-sided CVA/acute ischemic stroke in R basal ganglia: patient reports improvement in ROM, in ambulation, and denies slurred speech. She still has L sided facial droop. Neurology consult appreciated. EEG was normal. Monitor on telemetry and complete 72 hours of monitoring. Continue plavix and atorvastatin. Continue PT/OT and await clearance. Get PM&R on board. MRA of Head /Brain was unremarkable. Awaiting results of carotid imaging. -Echo findings 11/27: EF: 45% (suggesting systolic heart failure), Mildly depressed global L ventricular systolic function with regional wall motion abnormalities. Grade I L ventricular diastolic dysfunction. Aortic valve sclerosis without stenosis or aortic regurgitation. Mild tricuspid regurgitation with mild pulmonary HTN. -Constipation: monitor for BM. Add laxatives and bowel regimen if necessary. -E.coli UTI: WBC WNL today at 5.1. Treated with levaquin 250 mg PO q24h. Continue bacid for prophylaxis of C. diff. -HTN: Hold HCTZ and ramipril for now to allow permissive HTN. Keep systolic BP readings between 140s to 180s. -NIDDM Type 2: ISS at and . -Coronary Artery Disease/Hx of AR: Continue plavix and atorvastatin. -Diet: mechanical soft. Tolerating. DVT ppx: heparin My preceptor for this patient encounter was Dr. Darren Rowe, and was physically present in the building during the encounter and was fully available. As needed, all aspects of the patient interview, examination, medical decision making process, and medical care plan development were reviewed and approved by the preceptor. Preceptor is aware and concurs with the plan as stated in the body of this note and will attest to such by his/her cosignature. Attending Note I, Dr. Darren Rowe, have independently interviewed and examined this patient at the bedside with my Resident Physician, Dr. Castro, and have discussed and agree with the management for this patient's acute issues VS,Fishbone, I+O VS, Fishbone, I+O Laboratory Tests 11/29/16 05:01 Red Blood Count 4.29, Mean Corpuscular Volume 89.4, Mean Corpuscular Hemoglobin 29.6, Mean Corpuscular Hemoglobin Concent 33.1, Red Cell Distribution Width 13.7 , Calcium Level 8.7 L Vital Signs Date Time Temp Pulse Resp B/P (MAP) Pulse Ox O2 Delivery O2 Flow Rate FiO2 11/29/16 16:00 67 132/78 (96) 67 131/78 (95) 70 129/80 (96) 11/29/16 16:00 97.6 18 97 Room Air 11/26/16 17:57 2.0 I&O- Last 24 Hours up to 6 AM 11/29/16 06:00 Intake Total 1510 ml Output Total 1000 ml Balance 510 ml MILAGROS CASTRO OGME-1 November 29, 2016 18:03 DARREN ROWE MD November 30, 2016 06:27
[2016-11-29 19:00] VITALS: BP 144/73
--- NOTE | 2016-11-29 20:40 | EEG ---
DATE OF PROCEDURE:11/29/2016 REFERRING PHYSICIAN: Iman Rowe MD [id number] DIAGNOSIS: Possible seizure. HISTORY: The patient is a 81-year-old woman was admitted at [facility] due to slurred speech and falls. He was found to have left-sided facial droop. MRI of brain showed right sided acute ischemic stroke. This EEG was done to rule out epileptic potential. She is currently taking Plavix, levofloxacin, insulin, Lipitor etc. TECHNICAL DESCRIPTION: This digital EEG was recorded by 21 scalp, ear and two EKG electrodes and was reviewed in bipolar and referential montages following reformatting in 10-20 international electrode placement system. INTERPRETATION: The patient was noted to be in awake and drowsy states during this EEG. Resting awake background rhythm consisted of well-formed posterior dominant rhythm with anterior/posterior gradient comprising of 9 Hz alpha activity measuring 15 - 40 microvolts in amplitude, which was symmetric and reactive to eye opening. Attenuation of posterior dominant rhythm was seen during transition into drowsiness. Stage I and II sleep were reviewed and were symmetric bilaterally. Hyperventilation could not be performed. Photic stimulation at 3 - 30 Hz elicited symmetric photic driving especially at mid frequencies. EKG revealed normal sinus rhythm. No focal, lateralizing or epileptiform abnormalities were seen. No clinical or electrographic seizures were recorded. CONCLUSION: This EEG in awake, drowsy states, stage I and II sleep is within normal limits.
[2016-11-29] MEDS: ATORVASTATIN 20 MG TAB PO SCH (21:20)
[2016-11-29 22:00] VITALS: BP 139/86
[2016-11-30] MEDS: NYSTATIN 500,000 U/5 ML SUSP UDC PO SCH ×3 (01:07→12:16)
[2016-11-30] MEDS: SLF 3 ML SYR IV SCH (05:21)
[2016-11-30] MEDS: HEPARIN SOD (PORCINE) 5000 UNITS/ML VIAL SC SCH (05:21)
[2016-11-30 05:32] VITALS: BP 148/90
[2016-11-30 06:24] LABS: MEAN CORPUSCULAR HGB CONC 33.1 g/dl (32.0-36.5); MEAN CORPUSCULAR VOLUME 90.4 fl (80.0-96.0); RED CELL DISTRIBUTION WIDTH 13.5 % (11.5-14.5); WHITE BLOOD COUNT 5.3 K/mm3 (4.0-10.0)
[2016-11-30 07:15] VITALS: BP_SYST 144; BP_SYST 147; BP_DIAS 85; BP_DIAS 94
[2016-11-30 08:09] LABS: ANION GAP 8 MEQ/L (8-16); BLOOD UREA NITROGEN 16 MG/DL (7-18); CALCIUM LEVEL 9.2 MG/DL (8.8-10.2); CARBON DIOXIDE LEVEL 28 MEQ/L (21-32); CHLORIDE LEVEL 107 MEQ/L (98-107); CREATININE FOR GFR 0.87 MG/DL (0.55-1.02); GLOMERULAR FILTRATION RATE > 60.0 (>32); GLUCOSE, FASTING 131 MG/DL (83-110); POTASSIUM SERUM 3.9 MEQ/L (3.5-5.1); SODIUM LEVEL 143 MEQ/L (136-145)
[2016-11-30] MEDS: LACTOBACILLUS ACIDOPHILUS CAP (BACID) PO SCH (08:35)
[2016-11-30] MEDS: CLOPIDOGREL 75 MG TAB PO SCH (08:35)
[2016-11-30] MEDS: HumaLOG INSULIN (NovoLOG) PER UNIT SC SCH ×2 (08:36→12:17)
[2016-11-30] MEDS ORDERED: BISAC5TA PO (10:44)
[2016-11-30] MEDS ORDERED: LEVA250T PO (10:44)
[2016-11-30] MEDS ORDERED: NYST50SS PO (10:44)
[2016-11-30] MEDS ORDERED: ATOR1TAB21 PO (10:44)
[2016-11-30] MEDS ORDERED: BACITAB3 PO (10:44)
[2016-11-30] MEDS ORDERED: CLOP75TA2 PO (10:44)
[2016-11-30] MEDS ORDERED: OMEP10CASR PO (10:46)
--- NOTE | 2016-11-30 22:04 | DS.PDOC ---
Discharge Summary General Date of Admission November 26, 2016 at 16:03 Discharge Summary PROCEDURES PERFORMED DURING STAY: [None]. ADMITTING DIAGNOSES: 1. . 2. . 3. . DISCHARGE DIAGNOSES: 1. . 2. . 3. . COMPLICATIONS/CHIEF COMPLAINT: CVA. HISTORY OF PRESENT ILLNESS: . HOSPITAL COURSE: . DISCHARGE MEDICATIONS: Please see below. ALLERGIES: Please see below. PHYSICAL EXAMINATION ON DISCHARGE: VITAL SIGNS: Please see below. GENERAL: HEENT: NECK: CARDIOVASCULAR EXAMINATION: RESPIRATORY EXAMINATION: ABDOMINAL EXAMINATION: EXTREMITIES: SKIN: NEUROLOGICAL EXAMINATION: PSYCHIATRIC EXAMINATION: LABORATORY DATA: Please see below. IMAGING: PROGNOSIS: ACTIVITY: [As tolerated]. DIET: . DISCHARGE PLAN: DISPOSITION: 01 Home, Self-Care. DISCHARGE INSTRUCTIONS: 1. . 2. . 3. . ITEMS TO FOLLOWUP ON ON OUTPATIENT: 1. . 2. . 3. . DISCHARGE CONDITION: [Stable]. TIME SPENT ON DISCHARGE: Greater than minutes. Vital Signs/I&Os Vital Signs Date Time Temp Pulse Resp B/P (MAP) Pulse Ox O2 Delivery O2 Flow Rate FiO2 11/30/16 07:15 78 144/85 (104) 77 147/85 (105) 80 147/94 (111) 11/30/16 06:00 98.1 18 93 Room Air 11/26/16 17:57 2.0 I&O- Last 24 Hours up to 6 AM 11/30/16 05:59 Intake Total 1560 ml Output Total 400 ml Balance 1160 ml Laboratory Data Labs 24H Laboratory Tests 2 11/30/16 07:21: Anion Gap 8, Glomerular Filtration Rate > 60.0, Blood Urea Nitrogen 16, Creatinine 0.87, Sodium Level 143, Potassium Level 3.9, Chloride Level 107, Carbon Dioxide Level 28, Calcium Level 9.2 11/30/16 07:52: Bedside Glucose (Misc Panel) 130H 11/30/16 11:33: Bedside Glucose (Misc Panel) 119H CBC/BMP Laboratory Tests 11/30/16 05:53 Red Blood Count 4.60, Mean Corpuscular Volume 90.4, Mean Corpuscular Hemoglobin 30.0, Mean Corpuscular Hemoglobin Concent 33.1, Red Cell Distribution Width 13.5 11/30/16 07:21 Calcium Level 9.2 FSBS Laboratory Tests Test 11/30/16 07:52 11/30/16 11:33 Range/Units Bedside Glucose (Misc Panel) 130 119 83-110 MG/DL Microbiology Microbiology 11/26/16 Urine Culture - Final, Complete Escherichia Coli Discharge Medications Scheduled Aspirin (Aspirin) 325 Mg Tab, 325 MG PO DAILY, (Reported) Atorvastatin Calcium (Atorvastatin Calcium) 20 Mg Tab, 40 MG PO QHS Please take one tablet daily at bedtime. Clopidogrel Bisulfate (Clopidogrel) 75 Mg Tab, 75 MG PO DAILY Please take 1 tab daily. Hydrochlorothiazide (Hydrochlorothiazide) 12.5 Mg Cap, 12.5 MG PO DAILY, ( Reported) Lactobacillus Acidophilus (Bacid) 1 Tab Tab, 1 TAB PO DAILY Please take 1 tablet daily for 3 days. Levofloxacin Hemihydrate (Levaquin) 250 Mg Tab, 250 MG PO DAILY@1600 Please take 1 tablet daily for 3 days. Metformin Hydrochloride (Metformin HCl) 500 Mg Tab, 500 MG PO BID, (Reported) Nystatin (Nystatin Oral Susp) 5 Ml Susp, 5 ML PO Q6H Omeprazole (PriLOSEC) 10 Mg Capcr, 20 MG PO DAILY Please take one tab daily. Ramipril (Ramipril) 10 Mg Cap, 10 MG PO DAILY, (Reported) Scheduled PRN Bisacodyl (Bisacodyl EC) 5 Mg Tab, 5 MG PO DAILYPRN PRN for CONSTIPATION Please take 1-2 tabs daily as needed for constipation. Allergies Coded Allergies: Penicillins (Verified Allergy, Intermediate, RASH, 04/12/13) MILAGROS CASTRO OGME-1 November 30, 2016 22:04
== END 2016-11-30 14:08 | disposition home or self-care (01) | DRG 65 ==
LOC: EDBD 13:10 → M ED 14:07 → M ED INP 16:03 → M PCU 18:40 → M MSPAV 11-29 18:58
PROVIDERS: ADMIT Hospitalist; ATTEND General Practice
DX: I63.9 Cerebral infarction, unspecified (principal); N39.0 Urinary tract infection, site not specified; I50.22 Chronic systolic (congestive) heart failure; I11.9 Hypertensive heart disease without heart failure; E78.5 Hyperlipidemia, unspecified; E11.9 Type 2 diabetes mellitus without complications; I25.2 Old myocardial infarction; I25.10 Atherosclerotic heart disease of native coronary artery without angina pectoris; Z79.82 Long term (current) use of aspirin; Z79.899 Other long term (current) drug therapy; B96.29 Other Escherichia coli [E. coli] as the cause of diseases classified elsewhere

== ENCOUNTER → 2018-03-09 | Outpatient (REF) | payer MEDICARE ==
[2018-03-09 12:03] LABS: HEMATOCRIT 39.4 % (36.0-47.0); HEMOGLOBIN 12.8 g/dl (12.0-15.5); MEAN CORPUSCULAR HEMOGLOBIN 30.3 pg (27.0-33.0); MEAN CORPUSCULAR HGB CONC 32.5 g/dl (32.0-36.5); MEAN CORPUSCULAR VOLUME 93.4 fl (80.0-96.0); PLATELET COUNT, AUTOMATED 251 10^3/uL (150-450); RED BLOOD COUNT 4.22 10^6/uL (4.00-5.40); WHITE BLOOD COUNT 9.1 10^3/uL (4.0-10.0)
[2018-03-09 12:19] LABS: ALBUMIN 3.5 GM/DL (3.2-5.2); ALBUMIN/GLOBULIN RATIO 0.97 (1.00-1.93); ALKALINE PHOSPHATASE 74 U/L (45-117); ALT/SGPT 19 U/L (12-78); ANION GAP 9 MEQ/L (8-16); AST/SGOT 13 U/L (7-37); BILIRUBIN,TOTAL 0.7 MG/DL (0.2-1.0); BLOOD UREA NITROGEN 26 MG/DL (7-18); CALCIUM LEVEL 9.3 MG/DL (8.8-10.2); CARBON DIOXIDE LEVEL 33 MEQ/L (21-32); CHLORIDE LEVEL 99 MEQ/L (98-107); CHOLESTEROL LEVEL 184 MG/DL (<200); CHOLESTEROL RISK RATIO 4.181 (<5); CREATININE FOR GFR 1.52 MG/DL (0.55-1.30); GLOMERULAR FILTRATION RATE 34.8 (>32); GLUCOSE, FASTING 114 MG/DL (70-100); HDL CHOLESTEROL 44 MG/DL (>40); LDL CHOLESTEROL 82.2 MG/DL (<100); NON-HDL-C 140 MG/DL; POTASSIUM SERUM 3.7 MEQ/L (3.5-5.1); SODIUM LEVEL 141 MEQ/L (136-145); TOTAL PROTEIN 7.1 GM/DL (6.4-8.2); TRIGLYCERIDES LEVEL 289 MG/DL (<150)
== END ==
LOC: M LABDRAW1 11:34
DX: I25.10 Atherosclerotic heart disease of native coronary artery without angina pectoris (principal); E78.00 Pure hypercholesterolemia, unspecified; I25.5 Ischemic cardiomyopathy
CPT/HCPCS: 80053

== ENCOUNTER → 2018-04-09 | Outpatient (REF) | payer MEDICARE ==
[2018-04-09 12:08] LABS: ANION GAP 7 MEQ/L (8-16); BLOOD UREA NITROGEN 20 MG/DL (7-18); CALCIUM LEVEL 8.9 MG/DL (8.8-10.2); CARBON DIOXIDE LEVEL 32 MEQ/L (21-32); CHLORIDE LEVEL 105 MEQ/L (98-107); CREATININE FOR GFR 1.06 MG/DL (0.55-1.30); GLOMERULAR FILTRATION RATE 52.7 (>32); GLUCOSE, FASTING 119 MG/DL (70-100); POTASSIUM SERUM 4.3 MEQ/L (3.5-5.1); SODIUM LEVEL 144 MEQ/L (136-145)
== END ==
LOC: M LABDRAW1 10:48
DX: I25.5 Ischemic cardiomyopathy (principal)
CPT/HCPCS: 80048

== ENCOUNTER → 2018-10-11 | Outpatient (REF) | payer MEDICARE ==
[~2018-10-11] MED LIST changes: +ASPI-1 PO; +ASPI-222 PO; -ASPI325T PO; +ATOR1TAB21 PO; +BACITAB PO; +BISAC5TA PO; +CLOP75TA2 PO; +HYDR12CA PO; +LEVA250T13 PO; -METF500T; +METF500T13; +METF500T13 PO; +NYST50SS PO; +OMEP10CASR PO; -RAMI10CA; +RAMI1CAP26; +RAMI1CAP26 PO
[2018-10-11 17:38] LABS: CALCIUM LEVEL 9.6 MG/DL (8.8-10.2); CREATININE FOR GFR 1.25 MG/DL (0.55-1.30); GLOMERULAR FILTRATION RATE 43.6 (>32); POTASSIUM SERUM 3.9 MEQ/L (3.5-5.1)
[2018-10-11 17:39] LABS: MAGNESIUM LEVEL 2.1 MG/DL (1.8-2.4)
== END ==
LOC: M LABDRAW1 15:59
PROVIDERS: ATTEND Physician Assistant
DX: I25.5 Ischemic cardiomyopathy (principal)

== ENCOUNTER 2019-01-15 09:49 | Emergency (ER) | payer MEDICARE ==
[~2019-01-15] VITALS: Ht 165.1 cm; Wt 57.2 kg
--- NOTE | 2019-01-15 10:39 | REP ---
CT of the brain without IV contrast: Comparison is 11/26/2016. There is no hemorrhage. There is no edema, mass effect or midline shift. The sulci and ventricles are diffusely enlarged compatible with diffuse volume loss. This is unchanged. There is lucency in the subcortical white matter compatible with chronic microvascular ischemia. This is unchanged. The visualized paranasal sinuses and mastoid air cells are clear. Impression: There is no hemorrhage, acute infarct or mass. There are findings compatible with chronic microvascular ischemia and diffuse volume loss. No change from the prior study. Electronically Signed by Ramu Macdonald MD 01/15/2019 10:30 A
[2019-01-15] MEDS ORDERED: ACETAMINOPHEN 325 MG TAB PO ONE (10:45)
[2019-01-15 10:49] LABS: BASO # 0.1 10^3/uL (0.0-0.2); BASO % 0.7 % (0.0-1.0); EOS # 0.2 10^3/uL (0.0-0.50); HEMATOCRIT 41.5 % (36.0-47.0); HEMOGLOBIN 13.6 g/dl (12.0-15.5); LYMPH # 1.4 10^3/uL (1.5-4.5); LYMPH % 18.5 % (24.0-44.0); MEAN CORPUSCULAR HGB CONC 32.8 g/dl (32.0-36.5); MEAN CORPUSCULAR VOLUME 91.6 fl (80.0-96.0); MONO # 0.6 10^3/uL (0.0-0.8); MONO % 7.5 % (0.0-5.0); NEUTROPHILS # 5.3 10^3/uL (1.8-7.7); RED BLOOD COUNT 4.53 10^6/uL (4.00-5.40); WHITE BLOOD COUNT 7.5 10^3/uL (4.0-10.0)
[2019-01-15 11:08] LABS: INR 1.01
[2019-01-15 11:20] LABS: ALBUMIN 3.4 GM/DL (3.2-5.2); ALT/SGPT 16 U/L (12-78); BILIRUBIN,TOTAL 0.6 MG/DL (0.2-1.0); BLOOD UREA NITROGEN 18 MG/DL (7-18); CALCIUM LEVEL 9.5 MG/DL (8.8-10.2); CARBON DIOXIDE LEVEL 30 MEQ/L (21-32); CHLORIDE LEVEL 106 MEQ/L (98-107); CK-MB VALUE MASS < 1.0 NG/ML (<3.6); CPK CREATINE PHOSPHOKINASE 70 U/L (26-192); CREATININE FOR GFR 0.96 MG/DL (0.55-1.30); GLOMERULAR FILTRATION RATE 58.9 (>32); GLUCOSE, FASTING 145 MG/DL (70-100); LIPASE 146 U/L (73-393); MB/CK RELATIVE INDEX 1.43 (< OR =4); POTASSIUM SERUM 4.3 MEQ/L (3.5-5.1); SODIUM LEVEL 142 MEQ/L (136-145); TROPONIN I < 0.02 NG/ML (< 0.10)
[2019-01-15 11:21] LABS: PLATELET COUNT, AUTOMATED 200 10^3/uL (150-450)
[2019-01-15] MEDS ORDERED: ISOVUE-370 76% 100ML VIAL (Q9967) As Ordered ONE (11:42)
[2019-01-15 13:04] VITALS: BP 115/86
--- NOTE | 2019-01-15 13:52 | REP ---
CT ANGIOGRAPHY CAROTID ARTERIES: With IV contrast. HISTORY: Neck pain. Neurologic complaints. Rule out dissection. Comparison is made with today's brain CT. CT CONTRAST DOSE: 75 mL of intravenous Isovue [address] ANGIOGRAPHIC FINDINGS: The thoracic aorta is tortuous and shows atherosclerotic calcification. Great vessel origins appear intact as visualized. There is atherosclerotic calcification at the origin of the innominate artery. The common carotid arteries are intact and symmetric. The vertebral arteries are somewhat tortuous but bilaterally intact. Right is a little smaller than left. There is no evidence of vertebral artery dissection or occlusion. The carotid artery bifurcations show minimal calcification right more so than left. No significant stenosis is seen. The internal carotid arteries are somewhat tortuous but intact. There is no evidence to suggest dissection. No occlusion is seen. There is atherosclerotic calcification in the carotid siphons bilaterally. No evidence of preston aneurysm. 3D surface rendered and curved MPR reformatted images show no additional abnormality. IMPRESSION: The vertebral arteries are tortuous bilaterally but patent. Right vertebral artery is a little smaller than left. The internal carotid artery shows some tortuosity. There is vascular calcification. No evidence of stenosis or dissection. No occlusion seen. Electronically Signed by Du Lane MD 01/15/2019 03:03 P
== END 2019-01-15 14:00 | disposition home or self-care (01) ==
LOC: M ED 09:49
DX: M54.2 Cervicalgia (principal); M79.18 Myalgia, other site; E11.9 Type 2 diabetes mellitus without complications; I11.9 Hypertensive heart disease without heart failure; E78.5 Hyperlipidemia, unspecified; Z86.73 Personal history of transient ischemic attack (TIA), and cerebral infarction without residual deficits; Z95.5 Presence of coronary angioplasty implant and graft; Z88.0 Allergy status to penicillin; Z79.899 Other long term (current) drug therapy; Z79.02 Long term (current) use of antithrombotics/antiplatelets; Z79.82 Long term (current) use of aspirin; Z79.84 Long term (current) use of oral hypoglycemic drugs
CPT/HCPCS: 70450; 70498; 80053; 82550; 82553; 83690; 84484; 85025; 85610; 93041; 94760; 99285; Q9967

== ENCOUNTER 2019-02-26 08:20 | Emergency (ER) | payer MEDICARE ==
[~2019-02-26] VITALS: Ht 165.1 cm; Wt 54.5 kg
[~2019-02-26 08:20] MED LIST changes: -ASPI-222 PO; +ASPI-527 PO
--- NOTE | 2019-02-26 09:06 | REP ---
CT of the head without contrast Indication: Fall injury. Comparison: CT head of 01/15/2019. Technique: Axial CT of the head was performed without contrast. Findings: There is no visible soft tissue swelling or calvarial fracture. There is no evidence of acute intracranial hemorrhage or extra-axial fluid collection. There are scattered and confluent hypodensities within the periventricular and subcortical white matter which are nonspecific but suggestive of microvascular ischemic disease, similar to prior. There is no mass effect or midline shift. The basal cisterns are patent. There is similar prominence of the ventricles secondary to generalized volume loss. Note is made of dense intracranial vascular calcification. The visualized paranasal sinuses and mastoid air cells are clear. Impression: 1. No acute intracranial abnormality. 2. White matter changes, similar to prior. Electronically Signed by Roslyn Petersen MD 02/26/2019 08:57 A
--- NOTE | 2019-02-26 09:17 | REP ---
CT of the cervical spine without contrast Indication: Fall injury. Comparison: None Technique: Axial CT of the cervical spine was performed without contrast. Axial, coronal and sagittal bone reformatted images were provided. Findings: There is diffuse bone demineralization. There is no acute fractures of or subluxation of the cervical spine. There is loss of vertebral body height and C5 and C6 with sclerosis, thought to be chronic. The craniocervical junction is intact. There is extensive multilevel cervical spondylosis including multilevel facet arthropathy and disc space narrowing, endplate irregularity and subchondral cyst formation. There is bony fusion of the left C4-C5 facets and right C3-C4 facets. The CT appearance of the spinal canal is within normal limits. The upper airway is patent. There are mild pleural parenchymal changes within the lung apices. Impression: No acute fracture or subluxation of the cervical spine. Mild loss of vertebral body height at C5 C6 with sclerosis, likely chronic. Extensive cervical spondylosis. Diffuse bone demineralization. Electronically Signed by Roslyn Petersen MD 02/26/2019 09:09 A
[2019-02-26] MEDS ORDERED: CYCLOBENZAPRINE 5MG TABLET PO ONE (09:30)
[2019-02-26] MEDS ORDERED: CYCL5TAB PO (09:30)
[2019-02-26] MEDS ORDERED: ACETAMINOPHEN 325 MG TAB PO ONE (09:45)
[2019-02-26 09:54] VITALS: BP 163/75
--- NOTE | 2019-02-26 10:50 | REP ---
Right shoulder three views : There is no fracture or dislocation. Mineralization and joint spaces are normal. There are no calcifications or foreign bodies. Impression: Negative right shoulder . Electronically Signed by Ramu Macdonald MD 02/26/2019 10:41 A
== END 2019-02-26 09:58 | disposition home or self-care (01) ==
LOC: EDBD 08:20 → M ED 08:20
DX: S16.1XXA Strain of muscle, fascia and tendon at neck level, initial encounter (principal); S40.011A Contusion of right shoulder, initial encounter; W08.XXXA Fall from other furniture, initial encounter; Y92.89 Other specified places as the place of occurrence of the external cause; I11.9 Hypertensive heart disease without heart failure; I25.2 Old myocardial infarction; M19.90 Unspecified osteoarthritis, unspecified site; Z86.73 Personal history of transient ischemic attack (TIA), and cerebral infarction without residual deficits; Z88.0 Allergy status to penicillin; Z79.899 Other long term (current) drug therapy; Z79.02 Long term (current) use of antithrombotics/antiplatelets

== ENCOUNTER → 2019-07-24 | Outpatient (REF) | payer MEDICARE ==
[~2019-07-24] MED LIST changes: +CYCL5TAB PO
[2019-07-24 13:46] LABS: HEMATOCRIT 42.2 % (36.0-47.0); HEMOGLOBIN 13.5 g/dl (12.0-15.5); MEAN CORPUSCULAR HEMOGLOBIN 29.2 pg (27.0-33.0); MEAN CORPUSCULAR VOLUME 91.3 fl (80.0-96.0); PLATELET COUNT, AUTOMATED 260 10^3/uL (150-450); RED BLOOD COUNT 4.62 10^6/uL (4.00-5.40); WHITE BLOOD COUNT 7.1 10^3/uL (4.0-10.0)
[2019-07-24 14:18] LABS: ALBUMIN 3.6 GM/DL (3.2-5.2); BILIRUBIN,TOTAL 0.6 MG/DL (0.2-1.0); CALCIUM LEVEL 9.7 MG/DL (8.8-10.2); CREATININE FOR GFR 0.99 MG/DL (0.55-1.30); GLOMERULAR FILTRATION RATE 56.9 (>32); TOTAL PROTEIN 6.8 GM/DL (6.4-8.2)
== END ==
LOC: M LABDRWAD 13:13
PROVIDERS: ATTEND Family Medicine
DX: E11.9 Type 2 diabetes mellitus without complications (principal)

== ENCOUNTER 2020-01-28 19:37 | Inpatient (IN) | payer MEDICARE ==
[~2020-01-28 19:37] MED LIST changes: +LORazepam 2 MG/ML VIAL ONE; +MORPHINE 2 MG/ML 1ML VIAL (J2270) ONE; +NORCO, ANEXSIA 5/325MG TABLET (HYDROcodone/ACETAMINOPHEN) ONE; +ONDANSETRON 4MG/2ML VIAL ONE
[2020-01-29] MEDS ORDERED: HEPARIN SOD (PORCINE) 5000UNITS/ML 1ML VIAL/SYRINGE ONE ×2 (06:38→23:58)
[2020-01-29] MEDS ORDERED: CLOPIDOGREL 75 MG TAB ONE (10:15)
[2020-01-29] MEDS ORDERED: DOCUSATE SODIUM 100 MG CAP ONE (10:15)
[2020-01-29] MEDS ORDERED: HumaLOG INSULIN (NovoLOG) PER UNIT ONE (12:26)
[2020-01-29] MEDS ORDERED: GABAPENTIN 100 MG CAP ONE ×2 (12:27→23:58)
[2020-01-29] MEDS ORDERED: ramipriL 1.25 MG CAP ONE ×2 (13:00→21:00)
[2020-01-30] MEDS ORDERED: ramipriL 5 MG CAP ONE (08:34)
[2020-01-30] MEDS ORDERED: HumaLOG INSULIN (NovoLOG) PER UNIT ONE ×3 (08:34→15:20)
[2020-01-30] MEDS ORDERED: CLOPIDOGREL 75 MG TAB ONE (08:34)
[2020-01-30] MEDS ORDERED: HEPARIN SOD (PORCINE) 5000UNITS/ML 1ML VIAL/SYRINGE ONE ×3 (08:34→22:41)
[2020-01-30] MEDS ORDERED: DOCUSATE SODIUM 100 MG CAP ONE (08:34)
[2020-01-30] MEDS ORDERED: GABAPENTIN 100 MG CAP ONE (22:41)
[2020-01-31] MEDS ORDERED: MORPHINE 2 MG/ML 1ML VIAL (J2270) ONE (04:01)
[2020-01-31] MEDS ORDERED: HEPARIN SOD (PORCINE) 5000UNITS/ML 1ML VIAL/SYRINGE ONE ×2 (04:01→11:54)
[2020-01-31] MEDS ORDERED: CLOPIDOGREL 75 MG TAB ONE (07:54)
[2020-01-31] MEDS ORDERED: DOCUSATE SODIUM 100 MG CAP ONE (07:54)
[2020-01-31] MEDS ORDERED: HumaLOG INSULIN (NovoLOG) PER UNIT ONE ×2 (07:54→11:54)
[2020-01-31] MEDS ORDERED: GABAPENTIN 100 MG CAP ONE (07:54)
[2020-01-31] MEDS ORDERED: ACETAMINOPHEN TAB 650MG DOSE (2X325MG) ONE (11:54)
[2020-02-23 22:56] LABS: CALCIUM LEVEL 9.1 MG/DL (8.8-10.2); CREATININE FOR GFR 0.95 MG/DL (0.55-1.30); GLOMERULAR FILTRATION RATE 59.5 (>32); POTASSIUM SERUM 4.4 MEQ/L (3.5-5.1)
[2020-02-28 13:16] LABS: HEMATOCRIT 44.2 % (36.0-47.0); HEMOGLOBIN 13.9 g/dl (12.0-15.5); MEAN CORPUSCULAR HGB CONC 31.4 g/dl (32.0-36.5); MEAN CORPUSCULAR VOLUME 92.1 fl (80.0-96.0); PLATELET COUNT, AUTOMATED 213 10^3/uL (150-450); WHITE BLOOD COUNT 8.5 10^3/uL (4.0-10.0)
[2020-04-20 13:52] LABS: HEMOGLOBIN A1c 6.6 %; THYROID STIMULATING HORMONE 3.16 uIU/ML (0.358-3.740); TOTAL 25(OH) VITAMIN D 38.7 NG/ML (30.0-100.0)
--- NOTE | 2020-05-01 01:01 | ED PDOC ---
Post-Departure Follow-Up The original ED medical record/T-Sheet has been lost by an employee of [facility] and I have been asked to provide a replacement. I have no independent recollection of this patient encounter. There are nursing notes from which to extract any information about this patient. No physcial exam details can be provided. There are minimal labs results available but there is no ordering physician listed. As such, I have no ability to provide any history, including whether this patient was actually seen by myself. The only provider of record is the attending Hospitalist, which is no help for an ED encounter. Winston Dodge M.D. May 01, 2020 01:01
== END 2020-01-31 15:00 | disposition home health service (06) | DRG 552 ==
LOC: M ED INP 19:37
PROVIDERS: ADMIT Internal Medicine; ATTEND Internal Medicine
DX: M48.02 Spinal stenosis, cervical region (principal); M54.12 Radiculopathy, cervical region; E11.9 Type 2 diabetes mellitus without complications; I25.10 Atherosclerotic heart disease of native coronary artery without angina pectoris; Z95.5 Presence of coronary angioplasty implant and graft; Z88.0 Allergy status to penicillin; Z79.02 Long term (current) use of antithrombotics/antiplatelets; Z79.84 Long term (current) use of oral hypoglycemic drugs

== ENCOUNTER → 2020-02-03 | Outpatient (CLI) | payer MEDICARE ==
[~2020-02-03] MED LIST changes: -LORazepam 2 MG/ML VIAL ONE; -MORPHINE 2 MG/ML 1ML VIAL (J2270) ONE; -NORCO, ANEXSIA 5/325MG TABLET (HYDROcodone/ACETAMINOPHEN) ONE; -ONDANSETRON 4MG/2ML VIAL ONE
[2020-03-16 06:32] LABS: ANTINUCLEAR ANTIBODIES DIRECT See Separate Report; VITAMIN B1 LEVEL WHOLE BLOOD See Separate Report; VITAMIN B6,PYRIDOXAL PHOSPHATE See Separate Report; VITAMIN E(ALPHA TOCOPHEROL) See Separate Report; VITAMIN E(GAMMA TOCOPHEROL) See Separate Report
[2020-03-24 13:08] LABS: ALBUMIN 3.5 GM/DL (3.2-5.2); ALT/SGPT 45 U/L (12-78); BILIRUBIN,TOTAL 0.4 MG/DL (0.2-1.0); BLOOD UREA NITROGEN 22 MG/DL (7-18); CALCIUM LEVEL 9.1 MG/DL (8.8-10.2); CARBON DIOXIDE LEVEL 31 MEQ/L (21-32); CHLORIDE LEVEL 106 MEQ/L (98-107); CREATININE FOR GFR 1.04 MG/DL (0.55-1.30); FOLATE > 24.0 NG/ML; GLOMERULAR FILTRATION RATE 53.6 (>32); GLUCOSE, FASTING 116 MG/DL (70-100); HEMOGLOBIN A1c 6.5 %; POTASSIUM SERUM 4.5 MEQ/L (3.5-5.1); RHEUMATOID FACTOR QUANT < 10.0 IU/ML (<15.0); SODIUM LEVEL 141 MEQ/L (136-145); TOTAL PROTEIN 7.1 GM/DL (6.4-8.2); VITAMIN B12 LEVEL 703 PG/ML
[2020-04-14 12:59] LABS: BASO # 0.1 10^3/uL (0.0-0.2); BASO % 0.8 % (0.0-1.0); EOS # 0.2 10^3/uL (0.0-0.5); EOS % 2.9 % (0.0-3.0); HEMOGLOBIN 13.8 g/dl (12.0-15.5); LYMPH # 1.6 10^3/uL (1.5-5.0); LYMPH % 24.2 % (24.0-44.0); MEAN CORPUSCULAR HEMOGLOBIN 29.4 pg (27.0-33.0); MEAN CORPUSCULAR HGB CONC 31.4 g/dl (32.0-36.5); MEAN CORPUSCULAR VOLUME 93.6 fl (80.0-96.0); MONO # 0.6 10^3/uL (0.0-0.8); MONO % 8.8 % (0.0-5.0); NEUTROPHILS # 4.2 10^3/uL (1.5-8.5); PLATELET COUNT, AUTOMATED 222 10^3/uL (150-450); WHITE BLOOD COUNT 6.6 10^3/uL (4.0-10.0)
== END ==
LOC: M LAB 16:54
PROVIDERS: ATTEND Psychiatry & Neurology Neurology
DX: F03.90 Unspecified dementia, unspecified severity, without behavioral disturbance, psychotic disturbance, mood disturbance, and anxiety (principal); E07.9 Disorder of thyroid, unspecified; Z86.73 Personal history of transient ischemic attack (TIA), and cerebral infarction without residual deficits; E11.9 Type 2 diabetes mellitus without complications

== ENCOUNTER → 2021-02-11 | Outpatient (CLI) | payer MEDICARE ==
[2021-02-11 11:44] LABS: HEMATOCRIT 43.4 % (36.0-47.0); HEMOGLOBIN 13.8 g/dl (12.0-15.5); MEAN CORPUSCULAR HEMOGLOBIN 29.1 pg (27.0-33.0); MEAN CORPUSCULAR HGB CONC 31.8 g/dl (32.0-36.5); MEAN CORPUSCULAR VOLUME 91.4 fl (80.0-96.0); PLATELET COUNT, AUTOMATED 255 10^3/uL (150-450); RED BLOOD COUNT 4.75 10^6/uL (4.00-5.40)
[2021-02-11 12:21] LABS: ALBUMIN 3.6 GM/DL (3.2-5.2); ALT/SGPT 17 U/L (12-78); BILIRUBIN,TOTAL 0.7 MG/DL (0.2-1.0); BLOOD UREA NITROGEN 18 MG/DL (7-18); CALCIUM LEVEL 8.9 MG/DL (8.8-10.2); CARBON DIOXIDE LEVEL 31 MEQ/L (21-32); CHLORIDE LEVEL 108 MEQ/L (98-107); CHOLESTEROL LEVEL 209 MG/DL (<200); CHOLESTEROL RISK RATIO 4.098 (<5); CREATININE FOR GFR 0.81 MG/DL (0.55-1.30); GLOMERULAR FILTRATION RATE > 60.0 (>32); GLUCOSE, FASTING 125 MG/DL (70-100); HDL CHOLESTEROL 51 MG/DL (>40); LDL CHOLESTEROL 102 MG/DL (<100); NON-HDL-C 158 MG/DL; POTASSIUM SERUM 4.1 MEQ/L (3.5-5.1); SODIUM LEVEL 142 MEQ/L (136-145); TOTAL PROTEIN 6.9 GM/DL (6.4-8.2); TRIGLYCERIDES LEVEL 280 MG/DL (<150)
== END ==
LOC: M LAB 09:27
PROVIDERS: ATTEND Family Medicine
DX: E11.9 Type 2 diabetes mellitus without complications (principal)

== ENCOUNTER → 2021-08-04 | Outpatient (CLI) | payer MEDICARE ==
[2021-08-04 09:23] LABS: HEMATOCRIT 43.2 % (36.0-47.0); HEMOGLOBIN 13.9 g/dl (12.0-15.5); MEAN CORPUSCULAR HEMOGLOBIN 29.1 pg (27.0-33.0); MEAN CORPUSCULAR HGB CONC 32.2 g/dl (32.0-36.5); MEAN CORPUSCULAR VOLUME 90.4 fl (80.0-96.0); PLATELET COUNT, AUTOMATED 241 10^3/uL (150-450); RED BLOOD COUNT 4.78 10^6/uL (4.00-5.40); WHITE BLOOD COUNT 7.2 10^3/uL (4.0-10.0)
[2021-08-04 10:00] LABS: ALBUMIN 3.6 GM/DL (3.2-5.2); BILIRUBIN,TOTAL 0.5 MG/DL (0.2-1.0); CALCIUM LEVEL 9.5 MG/DL (8.8-10.2); CHOLESTEROL RISK RATIO 3.452 (<5); CREATININE FOR GFR 0.98 MG/DL (0.55-1.30); GLOMERULAR FILTRATION RATE 57.3 (>32); POTASSIUM SERUM 4.1 MEQ/L (3.5-5.1); TOTAL PROTEIN 6.9 GM/DL (6.4-8.2)
[2021-08-04 11:49] LABS: HEMOGLOBIN A1c 6.8 %
== END ==
LOC: M LAB 08:48
PROVIDERS: ATTEND Family Medicine
DX: E11.9 Type 2 diabetes mellitus without complications (principal)

== ENCOUNTER → 2022-06-16 | Outpatient (CLI) | payer MEDICARE ==
[~2022-06-16] MED LIST changes: -CILO100T PO; +CILO100T3 PO
[2022-06-16 10:40] LABS: HEMATOCRIT 36.7 % (36.0-47.0); HEMOGLOBIN 11.6 g/dl (12.0-15.5); MEAN CORPUSCULAR HEMOGLOBIN 29.6 pg (27.0-33.0); MEAN CORPUSCULAR HGB CONC 31.6 g/dl (32.0-36.5); MEAN CORPUSCULAR VOLUME 93.6 fl (80.0-96.0); PLATELET COUNT, AUTOMATED 283 10^3/uL (150-450); RED BLOOD COUNT 3.92 10^6/uL (4.00-5.40); WHITE BLOOD COUNT 6.1 10^3/uL (4.0-10.0)
[2022-06-16 11:00] LABS: HEMOGLOBIN A1c 6.1 % (4.0-6.0)
[2022-06-16 11:08] LABS: ALBUMIN 3.2 G/DL (3.2-5.2); BILIRUBIN,TOTAL 0.7 MG/DL (0.3-1.2); CALCIUM LEVEL 9.2 MG/DL (8.3-10.6); CHOLESTEROL RISK RATIO 3.23 (<5); CREATININE FOR GFR 1.1 MG/DL (0.55-1.30); HDL CHOLESTEROL 47.9 MG/DL (>40); LDL CHOLESTEROL 74.7 MG/DL (<100); POTASSIUM SERUM 4.1 MMOL/L (3.5-5.1); TOTAL PROTEIN 6.4 G/DL (5.7-8.2)
== END ==
LOC: M LAB 09:37
PROVIDERS: ATTEND Family Medicine
DX: E11.9 Type 2 diabetes mellitus without complications (principal)

== ENCOUNTER 2022-11-18 04:20 | Emergency (ER) | payer MEDICARE ==
[~2022-11-18] VITALS: Ht 167.6 cm; Wt 58.4 kg
[~2022-11-18 04:20] MED LIST changes: +NYST-38 PO; -NYST50SS PO
[2022-11-18 04:42] LABS: BASO # 0.1 10^3/uL (0.0-0.2); BASO % 0.7 % (0.0-1.0); EOS # 0.1 10^3/uL (0.0-0.5); EOS % 1.7 % (0.0-3.0); HEMATOCRIT 40.5 % (36.0-47.0); HEMOGLOBIN 12.9 g/dl (12.0-15.5); LYMPH # 1.3 10^3/uL (1.5-5.0); LYMPH % 17.1 % (24.0-44.0); MEAN CORPUSCULAR HEMOGLOBIN 29.1 pg (27.0-33.0); MEAN CORPUSCULAR HGB CONC 31.9 g/dl (32.0-36.5); MEAN CORPUSCULAR VOLUME 91.2 fl (80.0-96.0); MONO # 0.6 10^3/uL (0.0-0.8); MONO % 7.6 % (2.0-8.0); NEUTROPHILS # 5.6 10^3/uL (1.5-8.5); NEUTROPHILS % 72.6 % (36.0-66.0); PLATELET COUNT, AUTOMATED 239 10^3/uL (150-450); RED BLOOD COUNT 4.44 10^6/uL (4.00-5.40); WHITE BLOOD COUNT 7.7 10^3/uL (4.0-10.0)
[2022-11-18 04:52] LABS: INR 1.04; PROTHROMBIN TIME 13.8 SECONDS (12.5-14.5)
[2022-11-18 04:53] LABS: PARTIAL THROMBOPLASTIN TIME 30.9 SECONDS (24.8-34.2)
[2022-11-18 05:03] LABS: CK-MB VALUE MASS < 1.0 NG/ML (<3.6)
[2022-11-18 05:04] LABS: LIPASE 46 U/L (12-53)
[2022-11-18 05:05] LABS: CPK CREATINE PHOSPHOKINASE 33 U/L (34-145); MB/CK RELATIVE INDEX 3.03 (< OR =4)
[2022-11-18 05:06] LABS: ALBUMIN 3.5 G/DL (3.2-5.2); ALKALINE PHOSPHATASE 105 U/L (46-116); ALT/SGPT 18 U/L (7.0-40); AST/SGOT 16 U/L (<34); BILIRUBIN,DIRECT 0.2 MG/DL (<0.4); BILIRUBIN,TOTAL 0.6 MG/DL (0.3-1.2); BLOOD UREA NITROGEN 29 MG/DL (9-23); CALCIUM LEVEL 8.9 MG/DL (8.3-10.6); CARBON DIOXIDE LEVEL 30 MMOL/L (20-31); CHLORIDE LEVEL 109 MMOL/L (98-107); CREATININE FOR GFR 1.06 MG/DL (0.55-1.30); GLOMERULAR FILTRATION RATE 52.2 (>32); GLUCOSE, FASTING 144 MG/DL (74-106); SODIUM LEVEL 144 MMOL/L (136-145); TOTAL PROTEIN 6.5 G/DL (5.7-8.2)
[2022-11-18 06:34] LABS: CK-MB VALUE MASS < 1.0 NG/ML (<3.6)
[2022-11-18 06:49] LABS: CPK CREATINE PHOSPHOKINASE 35 U/L (34-145); MB/CK RELATIVE INDEX 2.85 (< OR =4)
[2022-11-18 07:00] VITALS: BP 187/86
== END 2022-11-18 08:19 | disposition home or self-care (01) ==
LOC: M ED 04:20
DX: R07.9 Chest pain, unspecified (principal); I44.0 Atrioventricular block, first degree; I44.7 Left bundle-branch block, unspecified; K21.9 Gastro-esophageal reflux disease without esophagitis; I25.2 Old myocardial infarction; I10 Essential (primary) hypertension; F03.90 Unspecified dementia, unspecified severity, without behavioral disturbance, psychotic disturbance, mood disturbance, and anxiety; Z86.79 Personal history of other diseases of the circulatory system; Z88.0 Allergy status to penicillin; Z79.83 Long term (current) use of bisphosphonates; Z79.811 Long term (current) use of aromatase inhibitors; Z79.899 Other long term (current) drug therapy

== ENCOUNTER → 2023-02-06 | Outpatient (CLI) | payer MEDICARE ==
[2023-02-06 15:19] LABS: CALCIUM LEVEL 9.4 MG/DL (8.3-10.6); CREATININE FOR GFR 1.07 MG/DL (0.55-1.30); GLOMERULAR FILTRATION RATE 51.5 (>32); MAGNESIUM LEVEL 2.3 MG/DL (1.8-2.4); POTASSIUM SERUM 4.3 MMOL/L (3.5-5.1)
== END ==
LOC: M LAB 14:18
PROVIDERS: ATTEND Physician Assistant
DX: I25.5 Ischemic cardiomyopathy (principal)

== ENCOUNTER 2023-03-09 17:06 | Day surgery (SDC) | payer MEDICARE ==
[~2023-03-09] VITALS: Ht 165.1 cm; Wt 57.2 kg
[2023-03-09 18:08] LABS: BASO # 0.1 10^3/uL (0.0-0.2); BASO % 0.6 % (0.0-1.0); EOS # 0.2 10^3/uL (0.0-0.5); EOS % 2.6 % (0.0-3.0); HEMATOCRIT 39.7 % (36.0-47.0); HEMOGLOBIN 12.8 g/dl (12.0-15.5); LYMPH # 2.5 10^3/uL (1.5-5.0); LYMPH % 31.3 % (24.0-44.0); MEAN CORPUSCULAR HEMOGLOBIN 29.7 pg (27.0-33.0); MEAN CORPUSCULAR HGB CONC 32.2 g/dl (32.0-36.5); MEAN CORPUSCULAR VOLUME 92.1 fl (80.0-96.0); MONO # 0.6 10^3/uL (0.0-0.8); MONO % 7.8 % (2.0-8.0); NEUTROPHILS # 4.5 10^3/uL (1.5-8.5); NEUTROPHILS % 57.1 % (36.0-66.0); PLATELET COUNT, AUTOMATED 233 10^3/uL (150-450); RED BLOOD COUNT 4.31 10^6/uL (4.00-5.40)
[2023-03-09 18:18] LABS: INR 1.04; PROTHROMBIN TIME 13.3 SECONDS (12.5-14.5)
[2023-03-09 18:23] LABS: ALBUMIN 3.4 G/DL (3.2-5.2); BILIRUBIN,DIRECT 0.2 MG/DL (<0.4); BILIRUBIN,TOTAL 0.4 MG/DL (0.3-1.2); CALCIUM LEVEL 9.2 MG/DL (8.3-10.6); CREATININE FOR GFR 1.04 MG/DL (0.55-1.30); GLOMERULAR FILTRATION RATE 53.2 (>32); POTASSIUM SERUM 4.3 MMOL/L (3.5-5.1); TOTAL PROTEIN 6.2 G/DL (5.7-8.2)
[2023-03-09 18:25] LABS: THYROID STIMULATING HORMONE 1.983 uIU/ML (0.55-4.78)
[2023-03-09 18:26] LABS: FREE T4 1.07 NG/DL (0.89-1.76)
[2023-03-09] MEDS ORDERED: propofoL 500 MG/50 ML VIAL As Ordered ONE (18:27)
[2023-03-09] MEDS ORDERED: fentaNYL 100 MCG/2 ML INJECTION As Ordered ONE (18:28)
[2023-03-09] MEDS ORDERED: LIDOCAINE 2% 100MG/5ML SDV (FOR ANES.) As Ordered ONE (18:30)
[2023-03-09] MEDS ORDERED: LR 1,000 ML IV SCH (18:50)
[2023-03-09] MEDS ORDERED: VANCOMYCIN HCL 1,000 MG, VIAL MATE ADAPTER 1 EACH in NS 250 ML IV ONE (18:50)
[2023-03-09] MEDS ORDERED: MED REC CURRENTLY UNOBTAINABLE XX SCH (19:30)
[2023-03-09] MEDS ORDERED: LIDOCAINE 1% SDV 30ML VIAL As Ordered ONE (19:48)
[2023-03-09] MEDS ORDERED: ISOVUE-300 61% 100ML VIAL As Ordered ONE (19:48)
[2023-03-09] MEDS ORDERED: BACITRACIN OINTMENT 30GM TUBE As Ordered ONE (19:50)
[2023-03-09] MEDS ORDERED: AMIODARONE 150MG/3ML VIAL As Ordered ONE (19:50)
[2023-03-09] MEDS ORDERED: MIDAZOLAM INJ 2MG/2ML VIAL As Ordered ONE (20:16)
[2023-03-09] MEDS ORDERED: ePHEDrine SULFATE 25 MG/5 ML(5MG/ML) SYRINGE As Ordered ONE (21:05)
[2023-03-09] MEDS ORDERED: ACETAMINOPHEN TAB 650MG DOSE (2X325MG) PO PRN (21:40)
[2023-03-09 22:15] VITALS: BP 159/75; TEMP 97.9; O2SAT 94
[2023-03-09 22:30] VITALS: BP 142/96; TEMP 97.6; O2SAT 94
[2023-03-09 23:00] VITALS: BP 138/97; TEMP 97.3; O2SAT 96
[2023-03-09 23:30] VITALS: BP 140/97; TEMP 97; O2SAT 95
[2023-03-10 00:46] VITALS: BP 173/95; TEMP 97.9; O2SAT 95
[2023-03-10] MEDS ORDERED: ACETAMINOPHEN *IV* 1,000 MG in IV 1 EA IV ONE (01:00)
[2023-03-10 03:58] VITALS: BP 163/74; TEMP 97; O2SAT 92
[2023-03-10] MEDS ORDERED: VANCOMYCIN HCL 1,000 MG, VIAL MATE ADAPTER 1 EACH in D5W 250 ML IV ONE (06:00)
[2023-03-10] MEDS ORDERED: RAMI1CAP22 PO (06:41)
[2023-03-10] MEDS ORDERED: CLOP75TA2 PO (06:41)
[2023-03-10] MEDS ORDERED: VITMTA PO (06:41)
[2023-03-10] MEDS ORDERED: NITR4TASL SL (06:41)
[2023-03-10] MEDS ORDERED: FOLI400T5 PO (06:41)
[2023-03-10] MEDS ORDERED: ROSU40TA4 PO (06:41)
[2023-03-10 07:21] VITALS: BP 145/90; TEMP 97.2; O2SAT 98
[2023-03-10] MEDS ORDERED: HOME MED LIST COMPLETE! XX SCH (08:45)
[2023-03-10] MEDS: CLOPIDOGREL 75 MG TAB PO SCH ×2 (11:24→14:16)
[2023-03-10] MEDS: ramipriL 5 MG CAP PO SCH ×2 (11:27→14:16)
[2023-03-10 11:36] VITALS: BP 136/74; TEMP 96.6; O2SAT 96
[2023-03-10 14:16] VITALS: BP 136/74
[2023-03-10] MEDS ORDERED: ALTA1CAP3 PO (15:53)
[2023-03-10 15:58] VITALS: BP 164/70; TEMP 97.2; O2SAT 91
[2023-03-10] MEDS ORDERED: ROSUVASTATIN 10 MG TAB (CRESTOR) PO SCH (21:00)
== END 2023-03-10 18:06 | disposition home health service (06) ==
LOC: EDBD 17:06 → M ED 17:06 → M SDC 18:45 → M PCU 22:15 → M SDC 03-10 18:06
PROVIDERS: ATTEND Internal Medicine Cardiovascular Disease
DX: R55 Syncope and collapse (principal); I44.2 Atrioventricular block, complete; I11.9 Hypertensive heart disease without heart failure; Z88.0 Allergy status to penicillin
CPT/HCPCS: 33208; 71045; 71046; 73620; 76000; 80048; 80076; 84439; 84443; 85025; 85610; 87635; 93005; 93041; 94760; 96361; 96365; 96366; 96375; 99285; C1785; C1898; J0131; J2250; J3010

== ENCOUNTER → 2023-11-20 | Outpatient (CLI) | payer MEDICARE ==
[~2023-11-20] MED LIST changes: +ALTA1CAP3 PO; +FOLI400T5 PO; +NITR4TASL SL; +RAMI10CA64; +RAMI10CA64 PO; -RAMI1CAP26; -RAMI1CAP26 PO; +RAMI2.5C42 PO; +ROSU40TA63 PO; +VITMTA PO
[2023-11-20 09:01] LABS: BASO # 0.1 10^3/uL (0.0-0.2); BASO % 0.8 % (0.0-1.0); EOS # 0.2 10^3/uL (0.0-0.5); EOS % 2.7 % (0.0-3.0); HEMATOCRIT 41.8 % (36.0-47.0); HEMOGLOBIN 13.4 g/dl (12.0-15.5); LYMPH # 2.3 10^3/uL (1.5-5.0); LYMPH % 30.9 % (24.0-44.0); MEAN CORPUSCULAR HEMOGLOBIN 29.9 pg (27.0-33.0); MEAN CORPUSCULAR HGB CONC 32.1 g/dl (32.0-36.5); MEAN CORPUSCULAR VOLUME 93.3 fl (80.0-96.0); MONO # 0.5 10^3/uL (0.0-0.8); MONO % 7.1 % (2.0-8.0); NEUTROPHILS # 4.4 10^3/uL (1.5-8.5); NEUTROPHILS % 58.1 % (36.0-66.0); PLATELET COUNT, AUTOMATED 245 10^3/uL (150-450); RED BLOOD COUNT 4.48 10^6/uL (4.00-5.40); WHITE BLOOD COUNT 7.5 10^3/uL (4.0-10.0)
[2023-11-20 09:12] LABS: HEMOGLOBIN A1c 6.8 % (4.0-6.0)
[2023-11-20 09:28] LABS: ALBUMIN 3.4 G/DL (3.2-5.2); BILIRUBIN,TOTAL 0.6 MG/DL (0.3-1.2); CALCIUM LEVEL 9.4 MG/DL (8.3-10.6); CHOLESTEROL RISK RATIO 2.98 (<5); CREATININE FOR GFR 1.54 MG/DL (0.55-1.30); CREATININE, URINE 54.2 MG/DL; GLOMERULAR FILTRATION RATE 33.8 (>32); HDL CHOLESTEROL 48.6 MG/DL (>40); LDL CHOLESTEROL 69.4 MG/DL (<100); MAU/CREAT RATIO 110.7 MCG/MG (0.0-30.0); NON-HDL-C 96.4 MG/DL; POTASSIUM SERUM 4.2 MMOL/L (3.5-5.1); TOTAL PROTEIN 6.4 G/DL (5.7-8.2)
== END ==
LOC: M LAB 08:05
PROVIDERS: ATTEND Family Medicine
DX: E11.69 Type 2 diabetes mellitus with other specified complication (principal)

== ENCOUNTER 2024-05-12 03:14 | Emergency (ER) | payer MEDICARE ==
[~2024-05-12] VITALS: Ht 162.6 cm; Wt 64.1 kg
[~2024-05-12 03:14] MED LIST changes: -CYCL5TAB PO; +CYCL5TAB4 PO; -ROSU40TA63 PO; +ROSU40TA81 PO
[2024-05-12] MEDS: ACETAMINOPHEN 325 MG TAB PO ONE ×2 (04:10→10:27)
[2024-05-12] MEDS: LIDOCAINE 5% (LIDODERM) PATCH TD ONE (06:09)
[2024-05-12] MEDS: NAPROXEN 250 MG TAB PO ONE (06:09)
[2024-05-12] MEDS ORDERED: LIDO5DIS41 TD (08:40)
[2024-05-12 13:49] VITALS: BP 140/65
[2024-05-12] MEDS: ramipriL 5 MG CAP PO ONE (13:49)
[2024-05-12] MEDS: CLOPIDOGREL 75 MG TAB PO ONE (13:50)
[2024-05-12 14:27] VITALS: BP 131/61; TEMP 97.7; O2SAT 96
== END 2024-05-12 14:30 | disposition home or self-care (01) ==
LOC: M ED 03:14
DX: S80.01XA Contusion of right knee, initial encounter (principal); M25.561 Pain in right knee; M17.11 Unilateral primary osteoarthritis, right knee; X58.XXXA Exposure to other specified factors, initial encounter; E78.5 Hyperlipidemia, unspecified; F03.90 Unspecified dementia, unspecified severity, without behavioral disturbance, psychotic disturbance, mood disturbance, and anxiety; Z86.79 Personal history of other diseases of the circulatory system; Z88.0 Allergy status to penicillin; Y92.9 Unspecified place or not applicable; Y93.9 Activity, unspecified; Y99.9 Unspecified external cause status; Z79.899 Other long term (current) drug therapy

== ENCOUNTER 2024-05-23 15:44 | Inpatient (IN) | payer MEDICARE ==
[~2024-05-23] VITALS: Ht 157.5 cm; Wt 57.0 kg
[~2024-05-23 15:44] MED LIST changes: +LIDO5DIS41 TD
[2024-05-23 17:07] LABS: BASO % 0.1 % (0.0-1.0); HEMATOCRIT 43.1 % (36.0-47.0); HEMOGLOBIN 14.6 g/dl (12.0-15.5); LYMPH # 1.4 10^3/uL (1.5-5.0); LYMPH % 7.4 % (24.0-44.0); MEAN CORPUSCULAR HEMOGLOBIN 28.6 pg (27.0-33.0); MEAN CORPUSCULAR HGB CONC 33.9 g/dl (32.0-36.5); MEAN CORPUSCULAR VOLUME 84.5 fl (80.0-96.0); MONO # 0.9 10^3/uL (0.0-0.8); MONO % 4.8 % (2.0-8.0); NEUTROPHILS # 16.9 10^3/uL (1.5-8.5); NEUTROPHILS % 86.9 % (36.0-66.0); PLATELET COUNT, AUTOMATED 388 10^3/uL (150-450); WHITE BLOOD COUNT 19.5 10^3/uL (4.0-10.0)
[2024-05-23] MEDS: ONDANSETRON 4MG 2ML VIAL IV ONE (17:08)
[2024-05-23] MEDS: NS 1,000 ML IV SCH (17:09)
[2024-05-23 17:14] LABS: ERYTHROCYTE SEDIMENTATION RATE 83 mm/hr (0-30)
[2024-05-23 17:19] LABS: ALBUMIN 2.5 G/DL (3.2-5.2); ALKALINE PHOSPHATASE 184 U/L (35-104); ALT/SGPT 67 U/L (7.0-40); AST/SGOT 80 U/L (<34); BILIRUBIN,DIRECT 0.5 MG/DL (<0.4); BILIRUBIN,TOTAL 0.8 MG/DL (0.3-1.2); BLOOD UREA NITROGEN 104 MG/DL (9-23); CALCIUM LEVEL 9.4 MG/DL (8.3-10.6); CARBON DIOXIDE LEVEL 19 MMOL/L (20-31); CHLORIDE LEVEL 104 MMOL/L (98-107); CREATININE FOR GFR 3.29 MG/DL (0.55-1.30); GLOMERULAR FILTRATION RATE 14.1 (>32); GLUCOSE, FASTING 166 MG/DL (74-106); POTASSIUM SERUM 4.8 MMOL/L (3.5-5.1); SODIUM LEVEL 136 MMOL/L (136-145); TOTAL PROTEIN 6.8 G/DL (5.7-8.2)
[2024-05-23 17:39] LABS: LIPASE 1084 U/L (12-53)
[2024-05-23 18:48] LABS: INR 1.22; PROTHROMBIN TIME 15.7 SECONDS (12.5-14.5)
[2024-05-23] MEDS ORDERED: MULTTAB61 PO (19:26)
[2024-05-23] MEDS ORDERED: DOXY100C3 PO (19:29)
[2024-05-23] MEDS ORDERED: RAMI2.5C42 PO (19:29)
[2024-05-23] MEDS ORDERED: HOME MED LIST COMPLETE! XX SCH (19:30)
[2024-05-23 21:16] LABS: VENOUS BASE EXCESS -7.3 (-2.0-2.0); VENOUS HCO3 19.2 MMOL/L (23.0-27.0); VENOUS O2 SATURATION 66.2 % (60.0-80.0); VENOUS PARTIAL PRESSURE CO2 42.2 mmHg (38.0-50.0); VENOUS PH 7.276 UNITS (7.330-7.430); VENOUS TOTAL CO2 20.5 MMOL/L (24.0-28.0)
[2024-05-23] MEDS ORDERED: NITROGLYCERIN 0.4MG SUBL TABLET SL PRN (21:55)
[2024-05-23] MEDS ORDERED: MAALOX 30 ML SUSP *UDC PO PRN (21:55)
[2024-05-23] MEDS ORDERED: DEXTROSE 50% 50ML SYRINGE IV PRN (21:55)
[2024-05-23] MEDS ORDERED: GLUCAGON INJ 1MG VIAL SC PRN (21:55)
[2024-05-23] MEDS ORDERED: ACETAMINOPHEN 325 MG TAB PO PRN (21:55)
[2024-05-23] MEDS ORDERED: MOM 30ML SUSPENSION UDC PO PRN (21:55)
[2024-05-23] MEDS ORDERED: NS 1,000 ML IV SCH (21:55)
[2024-05-23] MEDS ORDERED: NALOXONE INJ 0.4MG/1ML VIAL IV PRN (21:55)
[2024-05-23] MEDS ORDERED: GLUCOSE 4 GM CHEW PO PRN (21:55)
[2024-05-23 22:47] LABS: HEPATITIS B SURFACE ANTIGEN NEGATIVE (NEGATIVE)
[2024-05-23] MEDS: INSULIN LISPRO (NovoLOG) PER UNIT SC SCH (22:47)
[2024-05-23 23:08] LABS: HEPATITIS C VIRUS ABY INDEX < 0.02 INDEX (<0.8)
[2024-05-23 23:09] LABS: HEPATITIS B CORE ANTIBODY IGM NEGATIVE (NEGATIVE)
[2024-05-23 23:35] VITALS: TEMP 97.6; O2SAT 97
[2024-05-23] MEDS: DOCUSATE SODIUM 100MG CAPSULE PO SCH (23:56)
[2024-05-23] MEDS: ROSUVASTATIN 10 MG TAB (CRESTOR) PO SCH (23:56)
[2024-05-24] VITALS (12 sets, daily range): BP systolic 138–178; BP diastolic 67–84; TEMP 97.4–98.5; O2SAT 94–99
[2024-05-24] MEDS: ONDANSETRON 4MG 2ML VIAL IV PRN
[2024-05-24] MEDS: SODIUM BICARBONATE 75 MEQ in NS 0.45% 1,000 ML IV SCH (00:01)
[2024-05-24] MEDS: MORPHINE 2 MG/ML 1ML VIAL IV PRN ×2 (00:01→16:12)
[2024-05-24 05:24] LABS: HEMATOCRIT 40.3 % (36.0-47.0); MEAN CORPUSCULAR HEMOGLOBIN 29.4 pg (27.0-33.0); MEAN CORPUSCULAR HGB CONC 34.7 g/dl (32.0-36.5); MEAN CORPUSCULAR VOLUME 84.7 fl (80.0-96.0); PLATELET COUNT, AUTOMATED 334 10^3/uL (150-450); RED BLOOD COUNT 4.76 10^6/uL (4.00-5.40); WHITE BLOOD COUNT 21.1 10^3/uL (4.0-10.0)
[2024-05-24 06:23] LABS: ALBUMIN 2.2 G/DL (3.2-5.2); BILIRUBIN,TOTAL 1.1 MG/DL (0.3-1.2); CALCIUM LEVEL 8.8 MG/DL (8.3-10.6); CREATININE FOR GFR 2.96 MG/DL (0.55-1.30); GLOMERULAR FILTRATION RATE 15.9 (>32); MAGNESIUM LEVEL 2.1 MG/DL (1.8-2.4); POTASSIUM SERUM 3.8 MMOL/L (3.5-5.1); TOTAL PROTEIN 5.9 G/DL (5.7-8.2)
[2024-05-24] MEDS: SCOPOLAMINE 1MG TRANSDERMAL PATCH TOP ONE (06:30)
[2024-05-24] MEDS ORDERED: INSULIN LISPRO (NovoLOG) PER UNIT SC SCH (07:30)
[2024-05-24] MEDS: PANTOPRAZOLE 40MG VIAL IV SCH (08:46)
[2024-05-24] MEDS: CLOPIDOGREL 75 MG TAB PO SCH (08:47)
[2024-05-24] MEDS: amLODIPine 5 MG TAB PO SCH (08:47)
[2024-05-24] MEDS: HEPARIN SOD (PORCINE) 5000UNITS/ML 1ML VIAL/SYRINGE SC SCH (08:47)
[2024-05-24] MEDS ORDERED: ramipriL 1.25 MG CAP PO SCH (09:00)
[2024-05-24] MEDS ORDERED: MULTIVITAMINS/MINERALS THERAP 1 TAB PO SCH (09:00)
[2024-05-24] MEDS ORDERED: VITAMIN D (CHOLECALCIFEROL) 400 INTERNATIONAL UNITS TAB PO SCH (09:00)
[2024-05-24 15:21] LABS: SOURCE, BODY FLUID RT KNEE; SYNOVIAL FLUID COLOR RED (COLORLESS)
[2024-05-24 15:43] LABS: SOURCE, BODY FLUID CRYSTALS RT KNEE
[2024-05-24 15:44] LABS: CRYSTALS, BODY FLUID NONE SEEN (NONE SEEN)
[2024-05-25] VITALS (7 sets, daily range): BP systolic 135–152; BP diastolic 64–95; TEMP 96.5–98.1; O2SAT 95–98
[2024-05-25 06:45] LABS: BASO % 0.1 % (0.0-1.0); HEMATOCRIT 36.7 % (36.0-47.0); HEMOGLOBIN 12.8 g/dl (12.0-15.5); LYMPH # 1.6 10^3/uL (1.5-5.0); MEAN CORPUSCULAR HEMOGLOBIN 29.5 pg (27.0-33.0); MEAN CORPUSCULAR HGB CONC 34.9 g/dl (32.0-36.5); MEAN CORPUSCULAR VOLUME 84.6 fl (80.0-96.0); MONO # 1.4 10^3/uL (0.0-0.8); MONO % 5.9 % (2.0-8.0); NEUTROPHILS # 20.2 10^3/uL (1.5-8.5); NEUTROPHILS % 86.4 % (36.0-66.0); PLATELET COUNT, AUTOMATED 290 10^3/uL (150-450); RED BLOOD COUNT 4.34 10^6/uL (4.00-5.40); WHITE BLOOD COUNT 23.3 10^3/uL (4.0-10.0)
[2024-05-25 07:14] LABS: CALCIUM LEVEL 8.7 MG/DL (8.3-10.6); CREATININE FOR GFR 2.52 MG/DL (0.55-1.30); GLOMERULAR FILTRATION RATE 19.1 (>32); POTASSIUM SERUM 3.5 MMOL/L (3.5-5.1)
[2024-05-25] MEDS: D5W/0.9% SODIUM CHLORIDE 1,000 ML IV SCH (09:35)
[2024-05-25 09:48] LABS: ALBUMIN 1.9 G/DL (3.2-5.2); BILIRUBIN,DIRECT 0.7 MG/DL (<0.4); BILIRUBIN,TOTAL 1.2 MG/DL (0.3-1.2); TOTAL PROTEIN 4.9 G/DL (5.7-8.2)
[2024-05-25] MEDS: NS 0.45% 1,000 ML IV SCH (10:24)
[2024-05-25] MEDS ORDERED: NORCO, ANEXSIA 5/325MG TABLET (HYDROcodone/ACETAMINOPHEN) PO PRN (12:25)
[2024-05-25] MEDS: LIDOCAINE 5% (LIDODERM) PATCH TD ONE (13:02)
[2024-05-25] MEDS: NYSTATIN 500,000U/5ML SUSP UDC SS SCH (16:05)
[2024-05-26 04:09] VITALS: BP 146/72; TEMP 97.4; O2SAT 97
[2024-05-26 07:57] LABS: EOS # 0.1 10^3/uL (0.0-0.5); EOS % 0.3 % (0.0-3.0); HEMATOCRIT 37.4 % (36.0-47.0); HEMOGLOBIN 12.5 g/dl (12.0-15.5); LYMPH # 1.7 10^3/uL (1.5-5.0); LYMPH % 8.7 % (24.0-44.0); MEAN CORPUSCULAR HEMOGLOBIN 28.5 pg (27.0-33.0); MEAN CORPUSCULAR HGB CONC 33.4 g/dl (32.0-36.5); MEAN CORPUSCULAR VOLUME 85.2 fl (80.0-96.0); MONO # 1.1 10^3/uL (0.0-0.8); MONO % 5.4 % (2.0-8.0); NEUTROPHILS # 17.1 10^3/uL (1.5-8.5); NEUTROPHILS % 84.9 % (36.0-66.0); PLATELET COUNT, AUTOMATED 289 10^3/uL (150-450); RED BLOOD COUNT 4.39 10^6/uL (4.00-5.40); WHITE BLOOD COUNT 20.1 10^3/uL (4.0-10.0)
[2024-05-26 08:04] VITALS: BP 145/80; TEMP 98; O2SAT 96
[2024-05-26 08:32] LABS: CALCIUM LEVEL 8.7 MG/DL (8.3-10.6); CREATININE FOR GFR 2.3 MG/DL (0.55-1.30); GLOMERULAR FILTRATION RATE 21.3 (>32); MAGNESIUM LEVEL 1.8 MG/DL (1.8-2.4); POTASSIUM SERUM 3.5 MMOL/L (3.5-5.1)
[2024-05-26 12:00] VITALS: BP 128/63; TEMP 97; O2SAT 96; O2SAT 97
[2024-05-26] MEDS: ONDANSETRON 4MG 2ML VIAL IV SCH (13:09)
[2024-05-26 19:39] VITALS: BP 137/64; TEMP 97; O2SAT 97
[2024-05-26 23:09] VITALS: BP 127/92; TEMP 97.4; O2SAT 96
[2024-05-27 03:45] VITALS: BP 140/69; TEMP 97; O2SAT 98
[2024-05-27 05:39] LABS: BASO % 0.1 % (0.0-1.0); EOS # 0.1 10^3/uL (0.0-0.5); EOS % 0.3 % (0.0-3.0); HEMATOCRIT 35.6 % (36.0-47.0); HEMOGLOBIN 12.2 g/dl (12.0-15.5); LYMPH # 1.1 10^3/uL (1.5-5.0); LYMPH % 6.4 % (24.0-44.0); MEAN CORPUSCULAR HEMOGLOBIN 29.2 pg (27.0-33.0); MEAN CORPUSCULAR HGB CONC 34.3 g/dl (32.0-36.5); MEAN CORPUSCULAR VOLUME 85.2 fl (80.0-96.0); MONO # 1.1 10^3/uL (0.0-0.8); NEUTROPHILS # 15.4 10^3/uL (1.5-8.5); NEUTROPHILS % 86.4 % (36.0-66.0); PLATELET COUNT, AUTOMATED 304 10^3/uL (150-450); RED BLOOD COUNT 4.18 10^6/uL (4.00-5.40); WHITE BLOOD COUNT 17.8 10^3/uL (4.0-10.0)
[2024-05-27 06:20] LABS: ALBUMIN 1.6 G/DL (3.2-5.2); BILIRUBIN,DIRECT 0.6 MG/DL (<0.4); BILIRUBIN,TOTAL 0.9 MG/DL (0.3-1.2); CALCIUM LEVEL 8.5 MG/DL (8.3-10.6); CREATININE FOR GFR 2.62 MG/DL (0.55-1.30); GLOMERULAR FILTRATION RATE 18.3 (>32); MAGNESIUM LEVEL 1.8 MG/DL (1.8-2.4); POTASSIUM SERUM 3.7 MMOL/L (3.5-5.1); TOTAL PROTEIN 4.6 G/DL (5.7-8.2)
[2024-05-27 07:58] VITALS: BP 146/68; TEMP 97.8; O2SAT 96
[2024-05-27] MEDS: LR 1,000 ML IV SCH (10:29)
[2024-05-27] MEDS ORDERED: PILL CUTTER 1 EACH XX ONE (11:09)
[2024-05-27 11:14] VITALS: BP 146/68
[2024-05-27] MEDS: oxyCODONE 5MG TAB PO SCH (11:15)
[2024-05-27] MEDS: SUCRALFATE SUSP 1GM/10ML UD PO SCH (13:41)
[2024-05-27 16:00] VITALS: BP 146/64; TEMP 97.6; O2SAT 96
[2024-05-27 19:57] VITALS: BP 124/59; TEMP 97.1; O2SAT 97
[2024-05-27] MEDS: PANTOPRAZOLE 40MG VIAL IV SCH (22:02)
[2024-05-27] MEDS: SUCRALFATE 1 GM TAB PO SCH (22:10)
[2024-05-27] MEDS: NYSTATIN 500,000U/5ML SUSP UDC SS SCH (22:10)
[2024-05-27] MEDS: ONDANSETRON 4MG 2ML VIAL IV SCH (23:16)
[2024-05-27 23:41] VITALS: BP 123/55; TEMP 97.4; O2SAT 96
[2024-05-28 03:58] VITALS: BP 133/91; TEMP 97.1; O2SAT 96
[2024-05-28 06:05] LABS: BASO % 0.1 % (0.0-1.0); EOS # 0.1 10^3/uL (0.0-0.5); EOS % 0.3 % (0.0-3.0); HEMATOCRIT 35.6 % (36.0-47.0); HEMOGLOBIN 12.3 g/dl (12.0-15.5); LYMPH # 1.6 10^3/uL (1.5-5.0); LYMPH % 9.1 % (24.0-44.0); MEAN CORPUSCULAR HEMOGLOBIN 29.3 pg (27.0-33.0); MEAN CORPUSCULAR HGB CONC 34.6 g/dl (32.0-36.5); MEAN CORPUSCULAR VOLUME 84.8 fl (80.0-96.0); MONO # 1.1 10^3/uL (0.0-0.8); MONO % 6.4 % (2.0-8.0); NEUTROPHILS # 14.5 10^3/uL (1.5-8.5); PLATELET COUNT, AUTOMATED 355 10^3/uL (150-450); WHITE BLOOD COUNT 17.4 10^3/uL (4.0-10.0)
[2024-05-28 06:37] LABS: CALCIUM LEVEL 8.7 MG/DL (8.3-10.6); CREATININE FOR GFR 3.47 MG/DL (0.55-1.30); GLOMERULAR FILTRATION RATE 13.2 (>32); POTASSIUM SERUM 4.3 MMOL/L (3.5-5.1)
[2024-05-28 08:18] VITALS: BP 123/79; TEMP 97.7; O2SAT 92
[2024-05-28] MEDS ORDERED: FLUCONAZOLE 100 MG TAB PO SCH (09:00)
[2024-05-28 12:26] VITALS: BP 155/68; TEMP 96.9; O2SAT 94
[2024-05-28 15:30] VITALS: BP 118/58; TEMP 97.4; O2SAT 97
[2024-05-28] MEDS: cefTRIAXone SOD 1 GM in DEXTROSE 5% (D5W) ADV/MINI-BAG 50 ML IV SCH (16:46)
[2024-05-28 18:00] VITALS: BP 117/88; TEMP 97.5; O2SAT 98
[2024-05-29 01:40] VITALS: BP 108/73; TEMP 97.3; O2SAT 97
[2024-05-29 04:37] VITALS: BP 109/77; TEMP 97.5; O2SAT 98
[2024-05-29 05:57] LABS: BASO % 0.1 % (0.0-1.0); EOS # 0.1 10^3/uL (0.0-0.5); EOS % 0.9 % (0.0-3.0); HEMOGLOBIN 11.3 g/dl (12.0-15.5); LYMPH # 1.6 10^3/uL (1.5-5.0); LYMPH % 10.7 % (24.0-44.0); MEAN CORPUSCULAR HEMOGLOBIN 28.8 pg (27.0-33.0); MEAN CORPUSCULAR HGB CONC 34.2 g/dl (32.0-36.5); MONO # 1.2 10^3/uL (0.0-0.8); NEUTROPHILS # 11.8 10^3/uL (1.5-8.5); NEUTROPHILS % 79.4 % (36.0-66.0); PLATELET COUNT, AUTOMATED 373 10^3/uL (150-450); RED BLOOD COUNT 3.93 10^6/uL (4.00-5.40); WHITE BLOOD COUNT 14.9 10^3/uL (4.0-10.0)
[2024-05-29 06:24] LABS: CALCIUM LEVEL 8.5 MG/DL (8.3-10.6); CREATININE FOR GFR 2.94 MG/DL (0.55-1.30); MAGNESIUM LEVEL 1.9 MG/DL (1.8-2.4)
[2024-05-29] MEDS ORDERED: LORazepam 1 MG TAB PO PRN (12:40)
[2024-05-29] MEDS ORDERED: HYOSCYAMINE SULFATE 0.125 MG SUBL TABLET PO PRN (12:40)
[2024-05-29] MEDS ORDERED: ONDANSETRON 4MG ORAL DISINTEGRATING TAB PO PRN (12:40)
[2024-05-29] MEDS ORDERED: MORPHINE 10MG/0.5ML ORAL CONCENTRATE SOLUTION U/D SL PRN (12:40)
[2024-05-29] MEDS ORDERED: ATROPINE SULFATE 1% OPHTH SOLN 2ML BTL SL PRN (12:40)
[2024-05-29] MEDS ORDERED: MORPHINE 2 MG/ML 1ML VIAL IV PRN (12:50)
[2024-05-29] MEDS: ONDANSETRON 4MG ORAL DISINTEGRATING TAB PO SCH (13:00)
[2024-05-29] MEDS: MORPHINE 10MG/0.5ML ORAL CONCENTRATE SOLUTION U/D SL SCH (13:00)
[2024-05-29] MEDS: MORPHINE 2 MG/ML 1ML VIAL IV SCH (13:33)
[2024-05-29] MEDS: ONDANSETRON 4MG 2ML VIAL IV SCH (13:33)
[2024-05-31] MEDS: ONDANSETRON 4MG 2ML VIAL IV PRN (01:07)
[2024-05-31] MEDS: LORazepam 2 MG/ML 1ML VIAL IV PRN (20:55)
[2024-06-04] MEDS ORDERED: ONDANSETRON 4MG ORAL DISINTEGRATING TAB PO PRN (22:15)
[2024-06-04] MEDS ORDERED: MORPHINE 10MG/0.5ML ORAL CONCENTRATE SOLUTION U/D SL PRN (22:15)
[2024-06-04] MEDS ORDERED: LORazepam 1 MG TAB PO PRN (22:15)
== END 2024-06-05 03:25 | disposition expired | DRG 438 ==
LOC: M ED 15:44 → EDBD 15:44 → M ED INP 20:44 → M PCU 23:36 → M MSPAV 05-28 17:58
PROVIDERS: ADMIT Student in an Organized Health Care Education/Training Program; ATTEND Internal Medicine
PROC: 0S9C3ZZ Drainage of Right Knee Joint, Percutaneous Approach (ICD-10-PCS; principal; 2024-05-24)
DX: K85.90 Acute pancreatitis without necrosis or infection, unspecified (principal); G92.8 Other toxic encephalopathy; E43 Unspecified severe protein-calorie malnutrition; R65.11 Systemic inflammatory response syndrome (SIRS) of non-infectious origin with acute organ dysfunction; N17.9 Acute kidney failure, unspecified; E87.3 Alkalosis; E87.20 Acidosis, unspecified; B37.0 Candidal stomatitis; I25.10 Atherosclerotic heart disease of native coronary artery without angina pectoris; F03.90 Unspecified dementia, unspecified severity, without behavioral disturbance, psychotic disturbance, mood disturbance, and anxiety; E78.5 Hyperlipidemia, unspecified; K74.60 Unspecified cirrhosis of liver; I12.9 Hypertensive chronic kidney disease with stage 1 through stage 4 chronic kidney disease, or unspecified chronic kidney disease; E11.22 Type 2 diabetes mellitus with diabetic chronic kidney disease; D64.9 Anemia, unspecified; N18.9 Chronic kidney disease, unspecified; Z88.0 Allergy status to penicillin; Z79.899 Other long term (current) drug therapy; I25.2 Old myocardial infarction; Z95.0 Presence of cardiac pacemaker; Z95.2 Presence of prosthetic heart valve; Z86.73 Personal history of transient ischemic attack (TIA), and cerebral infarction without residual deficits; M16.0 Bilateral primary osteoarthritis of hip; Z51.5 Encounter for palliative care